=== PATIENT | female | born 1950 | race African-American/Black ===

== ENCOUNTER 2021-08-25 16:55 | Inpatient (IN) | payer MEDICARE ==
--- NOTE | 2021-08-26 10:45 | Consultation ---
History of Present Illness - Reason for Consult Consult date: 08/26/21 Medical of chronic medical conditions - History of Present Illness 70-year-old woman with reported history of hypertension and diabetes who was admitted to the geriatric psych for suicidal ideation. Medicine was consulted for management of chronic medical conditions. Patient interview was conducted via blue phone. Patient was not very communicative. She did endorse having hypertension and taking medication in the past. She did not know the name of the medications and had not taken them in months. She denies chest pain, shortness of breath, peripheral edema, polyuria and polydipsia. She also denied having diabetes. Currently she states she is "fine". She denied current suicidal ideation. Past History Past Medical History: hypertension Past Surgical History: No surgical history Social history: no significant social history Family history: no significant family history Medications and Allergies Allergies Allergy/AdvReac Type Severity Reaction Status Date / Time No Known Allergies Allergy Verified 08/26/21 03:16 Active Meds: Active Medications Melatonin (Melatonin 5 Mg Tab) 5 mg PO QHS PRN PRN Reason: Sleep Trazodone HCl (Trazodone 50 Mg Tab) 50 mg PO QHS [facility] Review of Systems All systems: negative Ears, nose, mouth and throat: headache Psychiatric: sadness/tearfullness Exam - Physical Exam Narrative exam: GENERAL: Thin elderly woman. Sitting in chair, no acute distress. HEENT: Normocephalic. Atraumatic. CHEST/LUNGS: CTAB on room air HEART/CARDIOVASCULAR: RRR. No murmur, rubs or gallops appreciated. ABDOMEN: +BS. NT/ND. SKIN: No rashes noted. NEURO: No focal motor deficit. Follows all commands and is ambulatory. MUSCULOSKELETAL: No joint effusion EXTREMITIES: No cyanosis, clubbing or edema. PSYCH: Cooperative. Results - Labs CBC & Chem 7: 08/26/21 13:40 08/26/21 13:40 Labs: Abnormal lab results 08/26/21 Range/Units 07:43 POC Glucose 113 H (70-105) mg/dL Assessment and Plan #Hypertension -Patient reports history of hypertension -No reported medications, none seen on chart review -If SBP greater than 160s persistently while inpatient, can consider starting antihypertensives #Reported history of type 2 diabetes -Hemoglobin A1c ordered -If A1c greater than 6.5, would recommend sliding scale -Would hold sliding scale for now #Schizophrenia #Suicidal ideation -Management per primary Thank you for this consult. We will continue to follow.
--- NOTE | 2021-08-26 12:04 | History and Physical Report ---
GP History & Physical - History of Present Illness Date of admission: 08/25/21 Date of Examination: 08/26/21 Reason for Admission: Danger to self, Failure of Outpatient Treatment, Severe anxiety/depression, Unable to care for self History of Present Illness: Rafaela Bell is a 70y/o [place] patient who was brought in for confusion and not taking medications. A medical physics teacher was utilized via the language line. The patient is confused. She did not know where she was, or why she was brought here. She says she lives with her family but it is "a sad situation." She says she is not happy. The patient endorses passive suicidal thoughts. She says she "wants to ." She denies having a suicidal attempt in the past. The patient verbalizes not being able to sleep and having headaches. When asked did she hear or see things other people don't hear. She says she does not see anything, but she heard someone says something about a fire. She denies illicit substance use. PAST PSYCHIATRIC HISTORY: Unable to assess PAST MEDICAL HISTORY: None reported or document Family Psychiatric History: None reported or documented SOCIAL HISTORY Marital Status: Living Arrangements: Lives with family Employment Status: retired Access to guns/weapons: Denies Education: History of Abuse:Yes Legal History: Denies REVIEW OF SYSTEMS Constitutional: Negative for weight loss ENT: Negative for stridor Respiratory: Negative for cough or hemoptysis All other systems reviewed and are negative MENTAL STATUS EXAMINATION General Appearance and Behavior: Age appropriate, good hygiene, wearing appropriate clothes. Cooperation: cooperative Psychomotor Behavior: Psychomotor normal Mood: Depressed, sad Affect and affective range: congruent with stated mood Thought Process: circumstantial Thought Content: None Speech: Normal volume, Regular rate and rhythm, Ch[place] speaking Suicidal Ideation: yes, passive Homicidal Ideation: Denies Hallucinations: auditory Delusions: None elicited Impulse Control: Imparied Insight and Judgment: Poor Memory:Poor Attention: Distractible Orientation: Confused Assessment and Plan (1) Schizophrenia Current Visit: Yes Status: Acute Treatment Plan Patient admitted for inpatient psychiatric evaluation, medication adjustment and close monitoring The patient's behavior, mood, sleep and appetite will be closely monitored. Patient enrolled in individual and group therapeutic sessions and encouraged to attend. Patient provided with a safe and structured environment. Patient's physical health needs will be addressed by the Hospitalist. Hospitalist Consulted Labs including CBC, CMP, Lipid profile and Hemoglobin A1C levels ordered for baseline reference Social Assessment will be completed and the Rim Fire Priming Tool Setter will work with stanislave nt and family to ensure a suitable and safe disposition Medication adjustment will be made as clinically indicated Start Zoloft 25mg po daily Start Abilify 5mg po daily Start Trazodone 50mg po qhs Start Melatonin 5mg po qhs prn insomnia Usual Wellness Restorationist/Preservation: - Start Trazodone 50 mg po QHS & 50 mg po QHS PRN between 10 PM & 2 AM for insomnia - Start Melatonin 5 mg po QHS to promote circadian rhythm The patient agreed on the treatment plan, understood the risk, benefit, alternative treatment, potential consequence of no treatment, and gave informed consent. Estimated days: 7 Post hospital care: primary care provider, psychiatric provider Case staffed with Dr. Briones Legal Status: Voluntary Reaction to Hospitalization: Accepting Medications and Allergies Allergies Allergy/AdvReac Type Severity Reaction Status Date / Time No Known Allergies Allergy Verified 08/26/21 03:16 Active Meds: Active Medications Melatonin (Melatonin 5 Mg Tab) 5 mg PO QHS PRN PRN Reason: Sleep Trazodone HCl (Trazodone 50 Mg Tab) 50 mg PO QHS [facility] Results - Results Labs/Vitals: Laboratory Last Values POC Glucose 106 mg/dL (70-105) H 08/26/21 11:59 Physician Certification - Certification Statement Physician Certification Statement: This is an acknowledgement statement that RAFAELA BELL is a 70 year old F who requires inpatient psychiatric admission for treatment which could reasonably be expected to improve the patient's condition for Estimated period of time patient will need to remain in the hospital: [ ] Plan for post-hospital care: [ ]
[2021-08-26] MEDS: SERTRALINE 25 MG TAB PO SCH (14:00)
[2021-08-26] MEDS: ARIPiprazole 5 MG TAB PO SCH (14:00)
[2021-08-26 14:03] LABS: Basophils % (Auto) 0.3 % (0.0-1.8); Eosinophils % (Auto) 0.1 % (0.0-4.3); Hematocrit 37.5 % (30.3-42.9); Hemoglobin 12.8 gm/dl (10.1-14.3); Lymphocytes # (Auto) 1.3 K/mm3 (1.2-5.4); Mean Corpuscular HGB Conc 34 % (30-34); Mean Corpuscular Volume 104 fl (79-97); Monocytes # (Auto) 0.3 K/mm3 (0.0-0.8); Monocytes % (Auto) 7.4 % (0.0-7.3); Platelet Count 165 K/mm3 (140-440); Red Blood Count 3.62 M/mm3 (3.65-5.03); Red Cell Distribution Width 13.4 % (13.2-15.2)
[2021-08-26 14:31] LABS: Alanine Aminotransferase 17 units/L (7-56); Albumin 3.3 g/dL (3.9-5); BUN/Creatinine Ratio 26; Blood Urea Nitrogen 13 mg/dL (7-17); Calcium 8.8 mg/dL (8.4-10.2); Chol/HDL Ratio 4.67 %; HDL Cholesterol 31 mg/dL (40-59); Hemolysis Index 8; LDL Cholesterol,Direct 97 mg/dL (50-130)
[2021-08-26] MEDS: traZODone 50 MG TAB PO SCH (21:20)
[2021-08-27] MEDS: SERTRALINE 25 MG TAB PO SCH (09:05)
[2021-08-27] MEDS: ARIPiprazole 5 MG TAB PO SCH (09:05)
--- NOTE | 2021-08-27 10:39 | Progress Note ---
Subjective Date of service: 08/27/21 Principal diagnosis: SI Subjective Comment: The patient was seen today. She is calm and cooperative. She is sitting with another patient. She has her head down initially, then raises it up. REVIEW OF SYSTEMS Constitutional: Negative for weight loss ENT: Negative for stridor Respiratory: Negative for cough or hemoptysis All other systems reviewed and are negative MENTAL STATUS EXAMINATION General Appearance and Behavior: Age appropriate, good hygiene, wearing appropriate clothes. Cooperation: cooperative Psychomotor Behavior: Psychomotor normal Mood: Depressed, sad Affect and affective range: congruent with stated mood Thought Process: circumstantial Thought Content: None Speech: Normal volume, Regular rate and rhythm, Palestinian speaking Suicidal Ideation: yes, passive Homicidal Ideation: Denies Hallucinations: auditory Delusions: None elicited Impulse Control: Imparied Insight and Judgment: Poor Memory:Poor Attention: Distractible Orientation: Confused Assessment and Plan (1) Schizophrenia Current Visit: Yes Status: Acute Treatment Plan Patient admitted for inpatient psychiatric evaluation, medication adjustment and close monitoring The patient's behavior, mood, sleep and appetite will be closely monitored. Patient enrolled in individual and group therapeutic sessions and encouraged to attend. Patient provided with a safe and structured environment. Patient's physical health needs will be addressed by the Hospitalist. Hospitalist Consulted Labs including CBC, CMP, Lipid profile and Hemoglobin A1C levels ordered for baseline reference Social Assessment will be completed and the Communications Superintendent will work with patient and family to ensure a suitable and safe disposition Medication adjustment will be made as clinically indicated ContineuZoloft 25mg po daily Continue Abilify 5mg po daily ContinueTrazodone 50mg po qhs Continue Melatonin 5mg po qhs prn insomnia Usual Wellness [facility]/Preservation: - Start Trazodone 50 mg po QHS & 50 mg po QHS PRN between 10 PM & 2 AM for insomnia - Start Melatonin 5 mg po QHS to promote circadian rhythm The patient agreed on the treatment plan, understood the risk, benefit, alternative treatment, potential consequence of no treatment, and gave informed consent. Estimated days: 7 Post hospital care: primary care provider, psychiatric provider Case staffed with Dr. Briones Medications and Allergies Allergies Allergy/AdvReac Type Severity Reaction Status Date / Time No Known Allergies Allergy Verified 08/26/21 03:16 Active Meds: Active Medications Aripiprazole (Aripiprazole 5 Mg Tab) 5 mg PO QDAY [facility] Last Admin: 08/27/21 09:05 Dose: 5 mg Documented by: Melatonin (Melatonin 5 Mg Tab) 5 mg PO QHS PRN PRN Reason: Sleep Sertraline HCl (Sertraline 25 Mg Tab) 25 mg PO QDAY [facility] Last Admin: 08/27/21 09:05 Dose: 25 mg Documented by: Trazodone HCl (Trazodone 50 Mg Tab) 50 mg PO QHS [facility] Last Admin: 08/26/21 21:20 Dose: 50 mg Documented by: Results - Results Labs/Vitals: Laboratory Last Values WBC 4.1 K/mm3 (4.5-11.0) L 08/26/21 13:40 RBC 3.62 M/mm3 (3.65-5.03) L 08/26/21 13:40 Hgb 12.8 gm/dl (10.1-14.3) 08/26/21 13:40 Hct 37.5 % (30.3-42.9) 08/26/21 13:40 MCV 104 fl (79-97) H 08/26/21 13:40 MCH 35 pg (28-32) H 08/26/21 13:40 MCHC 34 % (30-34) 08/26/21 13:40 RDW 13.4 % (13.2-15.2) 08/26/21 13:40 Plt Count 165 K/mm3 (140-440) 08/26/21 13:40 Lymph % (Auto) 31.0 % (13.4-35.0) 08/26/21 13:40 [place] % (Auto) 7.4 % (0.0-7.3) H 08/26/21 13:40 Eos % (Auto) 0.1 % (0.0-4.3) 08/26/21 13:40 Baso % (Auto) 0.3 % (0.0-1.8) 08/26/21 13:40 Lymph # (Auto) 1.3 K/mm3 (1.2-5.4) 08/26/21 13:40 [place] # (Auto) 0.3 K/mm3 (0.0-0.8) 08/26/21 13:40 Eos # (Auto) 0.0 K/mm3 (0.0-0.4) 08/26/21 13:40 Baso # (Auto) 0.0 K/mm3 (0.0-0.1) 08/26/21 13:40 Seg Neutrophils % 61.2 % (40.0-70.0) 08/26/21 13:40 Seg Neutrophils # 2.5 K/mm3 (1.8-7.7) 08/26/21 13:40 Sodium 140 mmol/L (137-145) 08/26/21 13:40 Potassium 4.3 mmol/L (3.6-5.0) 08/26/21 13:40 Chloride 102.8 mmol/L (98-107) 08/26/21 13:40 Carbon Dioxide 26 mmol/L (22-30) 08/26/21 13:40 Anion Gap 16 mmol/L 08/26/21 13:40 BUN 13 mg/dL (7-17) 08/26/21 13:40 Creatinine 0.5 mg/dL (0.6-1.2) L 08/26/21 13:40 Estimated GFR > 60 ml/min 08/26/21 13:40 BUN/Creatinine Ratio 26 % 08/26/21 13:40 Glucose 134 mg/dL (65-100) H 08/26/21 13:40 POC Glucose 117 mg/dL (70-105) H 08/27/21 06:05 Hemoglobin A1c 5.6 % (4-6) 08/26/21 13:40 Calcium 8.8 mg/dL (8.4-10.2) 08/26/21 13:40 Total Bilirubin 0.40 mg/dL (0.1-1.2) 08/26/21 13:40 AST 26 units/L (5-40) 08/26/21 13:40 ALT 17 units/L (7-56) 08/26/21 13:40 Alkaline Phosphatase 133 units/L (35-129) H 08/26/21 13:40 Total Protein 8.6 g/dL (6.3-8.2) H 08/26/21 13:40 Albumin 3.3 g/dL (3.9-5) L 08/26/21 13:40 Albumin/Globulin Ratio 0.6 % 08/26/21 13:40 Triglycerides 174 mg/dL (2-149) H 08/26/21 13:40 Cholesterol 145 mg/dL (50-199) 08/26/21 13:40 LDL Cholesterol Direct 97 mg/dL (50-130) 08/26/21 13:40 HDL Cholesterol 31 mg/dL (40-59) L 08/26/21 13:40 Cholesterol/HDL Ratio 4.67 % 08/26/21 13:40 TSH 3.330 mlU/mL (0.270-4.200) 08/26/21 13:40 Last Vital Signs Temp 97.9 F 08/27/21 07:27 Pulse 76 08/26/21 19:51 Resp 18 08/27/21 07:27 BP 128/48 08/27/21 07:27 Pulse Ox 94 08/26/21 19:51
[2021-08-27] MEDS: traZODone 50 MG TAB PO SCH (21:08)
--- NOTE | 2021-08-28 07:24 | Progress Note ---
Subjective Date of service: 08/28/21 Principal diagnosis: SI Subjective Comment: The patient was seen this morning, she non verbal today. Unable to assess. REVIEW OF SYSTEMS Constitutional: Negative for weight loss ENT: Negative for stridor Respiratory: Negative for cough or hemoptysis All other systems reviewed and are negative MENTAL STATUS EXAMINATION General Appearance and Behavior: Age appropriate, good hygiene, wearing appropriate clothes. Cooperation: uncooperative Psychomotor Behavior: Psychomotor normal Mood: Depressed, sad Affect and affective range: congruent with stated mood Thought Process: unable to assess Thought Content: None Speech: Non verbal Homicidal Ideation: unable to assess Hallucinations: unable to assess Delusions: None elicited Impulse Control: Imparied Insight and Judgment: Poor Memory:Poor Attention: Distractible Orientation: Confused Assessment and Plan (1) Schizophrenia Current Visit: Yes Status: Acute Treatment Plan Patient admitted for inpatient psychiatric evaluation, medication adjustment and close monitoring The patient's behavior, mood, sleep and appetite will be closely monitored. Patient enrolled in individual and group therapeutic sessions and encouraged to attend. Patient provided with a safe and structured environment. Patient's physical health needs will be addressed by the Hospitalist. Hospitalist Consulted Labs including CBC, CMP, Lipid profile and Hemoglobin A1C levels ordered for baseline reference Social Assessment will be completed and the Life Sciences Director will work with patient and family to ensure a suitable and safe disposition Medication adjustment will be made as clinically indicated Continue Zoloft 25mg po daily Continue Abilify 5mg po daily Continue Trazodone 50mg po qhs Continue Melatonin 5mg po qhs prn insomnia Usual Wellness Advent/Preservation: - Start Trazodone 50 mg po QHS & 50 mg po QHS PRN between 10 PM & 2 AM for insomnia - Start Melatonin 5 mg po QHS to promote circadian rhythm The patient agreed on the treatment plan, understood the risk, benefit, alternative treatment, potential consequence of no treatment, and gave informed consent. Estimated days: 7 Post hospital care: primary care provider, psychiatric provider Case staffed with Dr. Briones Medications and Allergies Allergies Allergy/AdvReac Type Severity Reaction Status Date / Time No Known Allergies Allergy Verified 08/26/21 03:16 Active Meds: Active Medications Aripiprazole (Aripiprazole 5 Mg Tab) 5 mg PO QDAY [facility] Last Admin: 08/27/21 09:05 Dose: 5 mg Documented by: Melatonin (Melatonin 5 Mg Tab) 5 mg PO QHS PRN PRN Reason: Sleep Sertraline HCl (Sertraline 25 Mg Tab) 25 mg PO QDAY [facility] Last Admin: 08/27/21 09:05 Dose: 25 mg Documented by: Trazodone HCl (Trazodone 50 Mg Tab) 50 mg PO QHS [facility] Last Admin: 08/26/21 21:20 Dose: 50 mg Documented by: Medications and Allergies Allergies Allergy/AdvReac Type Severity Reaction Status Date / Time No Known Allergies Allergy Verified 08/26/21 03:16 Active Meds: Active Medications Aripiprazole (Aripiprazole 5 Mg Tab) 5 mg PO QDAY [facility] Last Admin: 08/27/21 09:05 Dose: 5 mg Documented by: Melatonin (Melatonin 5 Mg Tab) 5 mg PO QHS PRN PRN Reason: Sleep Sertraline HCl (Sertraline 25 Mg Tab) 25 mg PO QDAY [facility] Last Admin: 08/27/21 09:05 Dose: 25 mg Documented by: Trazodone HCl (Trazodone 50 Mg Tab) 50 mg PO QHS [facility] Last Admin: 08/27/21 21:08 Dose: 50 mg Documented by: Results - Results Labs/Vitals: Laboratory Last Values WBC 4.1 K/mm3 (4.5-11.0) L 08/26/21 13:40 RBC 3.62 M/mm3 (3.65-5.03) L 08/26/21 13:40 Hgb 12.8 gm/dl (10.1-14.3) 08/26/21 13:40 Hct 37.5 % (30.3-42.9) 08/26/21 13:40 MCV 104 fl (79-97) H 08/26/21 13:40 MCH 35 pg (28-32) H 08/26/21 13:40 MCHC 34 % (30-34) 08/26/21 13:40 RDW 13.4 % (13.2-15.2) 08/26/21 13:40 Plt Count 165 K/mm3 (140-440) 08/26/21 13:40 Lymph % (Auto) 31.0 % (13.4-35.0) 08/26/21 13:40 [place] % (Auto) 7.4 % (0.0-7.3) H 08/26/21 13:40 Eos % (Auto) 0.1 % (0.0-4.3) 08/26/21 13:40 Baso % (Auto) 0.3 % (0.0-1.8) 08/26/21 13:40 Lymph # (Auto) 1.3 K/mm3 (1.2-5.4) 08/26/21 13:40 [place] # (Auto) 0.3 K/mm3 (0.0-0.8) 08/26/21 13:40 Eos # (Auto) 0.0 K/mm3 (0.0-0.4) 08/26/21 13:40 Baso # (Auto) 0.0 K/mm3 (0.0-0.1) 08/26/21 13:40 Seg Neutrophils % 61.2 % (40.0-70.0) 08/26/21 13:40 Seg Neutrophils # 2.5 K/mm3 (1.8-7.7) 08/26/21 13:40 Sodium 140 mmol/L (137-145) 08/26/21 13:40 Potassium 4.3 mmol/L (3.6-5.0) 08/26/21 13:40 Chloride 102.8 mmol/L (98-107) 08/26/21 13:40 Carbon Dioxide 26 mmol/L (22-30) 08/26/21 13:40 Anion Gap 16 mmol/L 08/26/21 13:40 BUN 13 mg/dL (7-17) 08/26/21 13:40 Creatinine 0.5 mg/dL (0.6-1.2) L 08/26/21 13:40 Estimated GFR > 60 ml/min 08/26/21 13:40 BUN/Creatinine Ratio 26 % 08/26/21 13:40 Glucose 134 mg/dL (65-100) H 08/26/21 13:40 POC Glucose 117 mg/dL (70-105) H 08/27/21 06:05 Hemoglobin A1c 5.6 % (4-6) 08/26/21 13:40 Calcium 8.8 mg/dL (8.4-10.2) 08/26/21 13:40 Total Bilirubin 0.40 mg/dL (0.1-1.2) 08/26/21 13:40 AST 26 units/L (5-40) 08/26/21 13:40 ALT 17 units/L (7-56) 08/26/21 13:40 Alkaline Phosphatase 133 units/L (35-129) H 08/26/21 13:40 Total Protein 8.6 g/dL (6.3-8.2) H 08/26/21 13:40 Albumin 3.3 g/dL (3.9-5) L 08/26/21 13:40 Albumin/Globulin Ratio 0.6 % 08/26/21 13:40 Triglycerides 174 mg/dL (2-149) H 08/26/21 13:40 Cholesterol 145 mg/dL (50-199) 08/26/21 13:40 LDL Cholesterol Direct 97 mg/dL (50-130) 08/26/21 13:40 HDL Cholesterol 31 mg/dL (40-59) L 08/26/21 13:40 Cholesterol/HDL Ratio 4.67 % 08/26/21 13:40 TSH 3.330 mlU/mL (0.270-4.200) 08/26/21 13:40 Last Vital Signs Temp 98.2 F 08/27/21 20:00 Pulse 70 08/27/21 20:00 Resp 18 08/27/21 20:00 BP 145/67 08/27/21 20:00 Pulse Ox 94 08/26/21 19:51
[2021-08-28] MEDS: ARIPiprazole 5 MG TAB PO SCH (10:08)
[2021-08-28] MEDS: SERTRALINE 25 MG TAB PO SCH (10:09)
[2021-08-28] MEDS: traZODone 50 MG TAB PO SCH (21:52)
[2021-08-28] MEDS: MELATONIN 5 MG TAB PO PRN (21:52)
--- NOTE | 2021-08-29 07:52 | Progress Note ---
Subjective Date of service: 08/29/21 Principal diagnosis: SI Subjective Comment: The patient seen this morning, she continues to be confused and pacing. A rfid systems engineer via the language line was used for this assessment. the patient states she feels normal but admits having auditory hallucinations. REVIEW OF SYSTEMS Constitutional: Negative for weight loss ENT: Negative for stridor Respiratory: Negative for cough or hemoptysis All other systems reviewed and are negative MENTAL STATUS EXAMINATION General Appearance and Behavior: Age appropriate, good hygiene, wearing appropriate clothes. Cooperation: uncooperative Psychomotor Behavior: Psychomotor normal Mood: confused Affect and affective range: congruent with stated mood Thought Process: unable to assess Thought Content: None Speech: Non verbal Homicidal Ideation: unable to assess Hallucinations: unable to assess Delusions: None elicited Impulse Control: Imparied Insight and Judgment: Poor Memory:Poor Attention: Distractible Orientation: Confused Assessment and Plan (1) Schizophrenia Current Visit: Yes Status: Acute Treatment Plan Patient admitted for inpatient psychiatric evaluation, medication adjustment and close monitoring The patient's behavior, mood, sleep and appetite will be closely monitored. Patient enrolled in individual and group therapeutic sessions and encouraged to attend. Patient provided with a safe and structured environment. Patient's physical health needs will be addressed by the Hospitalist. Hospitalist Consulted Labs including CBC, CMP, Lipid profile and Hemoglobin A1C levels ordered for baseline reference Social Assessment will be completed and the Acetone Button Paster will work with patient and family to ensure a suitable and safe disposition Medication adjustment will be made as clinically indicated Continue Zoloft 25mg po daily Continue Abilify 5mg po daily Continue Trazodone 50mg po qhs Continue Melatonin 5mg po qhs prn insomnia Usual Wellness [facility]/Preservation: - Start Trazodone 50 mg po QHS & 50 mg po QHS PRN between 10 PM & 2 AM for insomnia - Start Melatonin 5 mg po QHS to promote circadian rhythm The patient agreed on the treatment plan, understood the risk, benefit, alternative treatment, potential consequence of no treatment, and gave informed consent. Estimated days: 7 Post hospital care: primary care provider, psychiatric provider Case staffed with Dr. Briones Medications and Allergies Medications and Allergies Allergies Allergy/AdvReac Type Severity Reaction Status Date / Time No Known Allergies Allergy Verified 08/26/21 03:16 Active Meds: Active Medications Aripiprazole (Aripiprazole 5 Mg Tab) 5 mg PO QDAY [facility] Last Admin: 08/28/21 10:08 Dose: Not Given Documented by: Melatonin (Melatonin 5 Mg Tab) 5 mg PO QHS PRN PRN Reason: Sleep Last Admin: 08/28/21 21:52 Dose: 5 mg Documented by: Sertraline HCl (Sertraline 25 Mg Tab) 25 mg PO QDAY [facility] Last Admin: 08/28/21 10:09 Dose: Not Given Documented by: Trazodone HCl (Trazodone 50 Mg Tab) 50 mg PO QHS [facility] Last Admin: 08/28/21 21:52 Dose: 50 mg Documented by: Results - Results Labs/Vitals: Laboratory Last Values WBC 4.1 K/mm3 (4.5-11.0) L 08/26/21 13:40 RBC 3.62 M/mm3 (3.65-5.03) L 08/26/21 13:40 Hgb 12.8 gm/dl (10.1-14.3) 08/26/21 13:40 Hct 37.5 % (30.3-42.9) 08/26/21 13:40 MCV 104 fl (79-97) H 08/26/21 13:40 MCH 35 pg (28-32) H 08/26/21 13:40 MCHC 34 % (30-34) 08/26/21 13:40 RDW 13.4 % (13.2-15.2) 08/26/21 13:40 Plt Count 165 K/mm3 (140-440) 08/26/21 13:40 Lymph % (Auto) 31.0 % (13.4-35.0) 08/26/21 13:40 [place] % (Auto) 7.4 % (0.0-7.3) H 08/26/21 13:40 Eos % (Auto) 0.1 % (0.0-4.3) 08/26/21 13:40 Baso % (Auto) 0.3 % (0.0-1.8) 08/26/21 13:40 Lymph # (Auto) 1.3 K/mm3 (1.2-5.4) 08/26/21 13:40 [place] # (Auto) 0.3 K/mm3 (0.0-0.8) 08/26/21 13:40 Eos # (Auto) 0.0 K/mm3 (0.0-0.4) 08/26/21 13:40 Baso # (Auto) 0.0 K/mm3 (0.0-0.1) 08/26/21 13:40 Seg Neutrophils % 61.2 % (40.0-70.0) 08/26/21 13:40 Seg Neutrophils # 2.5 K/mm3 (1.8-7.7) 08/26/21 13:40 Sodium 140 mmol/L (137-145) 08/26/21 13:40 Potassium 4.3 mmol/L (3.6-5.0) 08/26/21 13:40 Chloride 102.8 mmol/L (98-107) 08/26/21 13:40 Carbon Dioxide 26 mmol/L (22-30) 08/26/21 13:40 Anion Gap 16 mmol/L 08/26/21 13:40 BUN 13 mg/dL (7-17) 08/26/21 13:40 Creatinine 0.5 mg/dL (0.6-1.2) L 08/26/21 13:40 Estimated GFR > 60 ml/min 08/26/21 13:40 BUN/Creatinine Ratio 26 % 08/26/21 13:40 Glucose 134 mg/dL (65-100) H 08/26/21 13:40 POC Glucose 114 mg/dL (70-105) H 08/29/21 06:08 Hemoglobin A1c 5.6 % (4-6) 08/26/21 13:40 Calcium 8.8 mg/dL (8.4-10.2) 08/26/21 13:40 Total Bilirubin 0.40 mg/dL (0.1-1.2) 08/26/21 13:40 AST 26 units/L (5-40) 08/26/21 13:40 ALT 17 units/L (7-56) 08/26/21 13:40 Alkaline Phosphatase 133 units/L (35-129) H 08/26/21 13:40 Total Protein 8.6 g/dL (6.3-8.2) H 08/26/21 13:40 Albumin 3.3 g/dL (3.9-5) L 08/26/21 13:40 Albumin/Globulin Ratio 0.6 % 08/26/21 13:40 Triglycerides 174 mg/dL (2-149) H 08/26/21 13:40 Cholesterol 145 mg/dL (50-199) 08/26/21 13:40 LDL Cholesterol Direct 97 mg/dL (50-130) 08/26/21 13:40 HDL Cholesterol 31 mg/dL (40-59) L 08/26/21 13:40 Cholesterol/HDL Ratio 4.67 % 08/26/21 13:40 TSH 3.330 mlU/mL (0.270-4.200) 08/26/21 13:40 Last Vital Signs Temp 97.6 F 08/28/21 21:07 Pulse 94 H 08/28/21 21:07 Resp 18 08/28/21 21:07 BP 158/71 08/28/21 21:07 Pulse Ox 96 08/28/21 21:07
--- NOTE | 2021-08-29 08:09 | Progress Note ---
Assessment and Plan Assessment and plan: #Hypertension -elevated blood pressures over the last few days -will start amlodipine 5mg qday -will continue to monitor #Reported history of type 2 diabetes -Hemoglobin A1c 5.6% -Would hold sliding scale for now -can discontinue accuchecks - glucose has been in low 100s. #Schizophrenia #Suicidal ideation -Management per primary Thank you for this consult. We will continue to follow. Disposition Plan: Per primary Total Time Spent with Patient (Minutes): 20 minutes History Interval history: No acute events overnight. Patient speaks Ethiopian, phone translation was used. Patient denies pain. Will not respond to any other questions. Hospitalist Physical - Physical exam Narrative exam: GENERAL: Thin elderly woman. Standing in the young, no acute distress. HEENT: Normocephalic. Atraumatic. CHEST/LUNGS: CTAB on room air HEART/CARDIOVASCULAR: RRR. No murmur, rubs or gallops appreciated. ABDOMEN: +BS. NT/ND. NEURO: Unable to assess EXTREMITIES: No cyanosis, clubbing or edema. - Constitutional Vitals: Temp Pulse Resp BP Pulse Ox 97.6 F 94 H 18 158/71 96 08/28/21 21:07 08/28/21 21:07 08/28/21 21:07 08/28/21 21:07 08/28/21 21:07 Results - Labs CBC & Chem 7: 08/26/21 13:40 08/26/21 13:40 Labs: Laboratory Last Values WBC 4.1 K/mm3 (4.5-11.0) L 08/26/21 13:40 RBC 3.62 M/mm3 (3.65-5.03) L 08/26/21 13:40 Hgb 12.8 gm/dl (10.1-14.3) 08/26/21 13:40 Hct 37.5 % (30.3-42.9) 08/26/21 13:40 MCV 104 fl (79-97) H 08/26/21 13:40 MCH 35 pg (28-32) H 08/26/21 13:40 MCHC 34 % (30-34) 08/26/21 13:40 RDW 13.4 % (13.2-15.2) 08/26/21 13:40 Plt Count 165 K/mm3 (140-440) 08/26/21 13:40 Lymph % (Auto) 31.0 % (13.4-35.0) 08/26/21 13:40 [place] % (Auto) 7.4 % (0.0-7.3) H 08/26/21 13:40 Eos % (Auto) 0.1 % (0.0-4.3) 08/26/21 13:40 Baso % (Auto) 0.3 % (0.0-1.8) 08/26/21 13:40 Lymph # (Auto) 1.3 K/mm3 (1.2-5.4) 08/26/21 13:40 [place] # (Auto) 0.3 K/mm3 (0.0-0.8) 08/26/21 13:40 Eos # (Auto) 0.0 K/mm3 (0.0-0.4) 08/26/21 13:40 Baso # (Auto) 0.0 K/mm3 (0.0-0.1) 08/26/21 13:40 Seg Neutrophils % 61.2 % (40.0-70.0) 08/26/21 13:40 Seg Neutrophils # 2.5 K/mm3 (1.8-7.7) 08/26/21 13:40 Sodium 140 mmol/L (137-145) 08/26/21 13:40 Potassium 4.3 mmol/L (3.6-5.0) 08/26/21 13:40 Chloride 102.8 mmol/L (98-107) 08/26/21 13:40 Carbon Dioxide 26 mmol/L (22-30) 08/26/21 13:40 Anion Gap 16 mmol/L 08/26/21 13:40 BUN 13 mg/dL (7-17) 08/26/21 13:40 Creatinine 0.5 mg/dL (0.6-1.2) L 08/26/21 13:40 Estimated GFR > 60 ml/min 08/26/21 13:40 BUN/Creatinine Ratio 26 % 08/26/21 13:40 Glucose 134 mg/dL (65-100) H 08/26/21 13:40 POC Glucose 114 mg/dL (70-105) H 08/29/21 06:08 Hemoglobin A1c 5.6 % (4-6) 08/26/21 13:40 Calcium 8.8 mg/dL (8.4-10.2) 08/26/21 13:40 Total Bilirubin 0.40 mg/dL (0.1-1.2) 08/26/21 13:40 AST 26 units/L (5-40) 08/26/21 13:40 ALT 17 units/L (7-56) 08/26/21 13:40 Alkaline Phosphatase 133 units/L (35-129) H 08/26/21 13:40 Total Protein 8.6 g/dL (6.3-8.2) H 08/26/21 13:40 Albumin 3.3 g/dL (3.9-5) L 08/26/21 13:40 Albumin/Globulin Ratio 0.6 % 08/26/21 13:40 Triglycerides 174 mg/dL (2-149) H 08/26/21 13:40 Cholesterol 145 mg/dL (50-199) 08/26/21 13:40 LDL Cholesterol Direct 97 mg/dL (50-130) 08/26/21 13:40 HDL Cholesterol 31 mg/dL (40-59) L 08/26/21 13:40 Cholesterol/HDL Ratio 4.67 % 08/26/21 13:40 TSH 3.330 mlU/mL (0.270-4.200) 08/26/21 13:40 Zamora/IV: Voiding Method Toilet Active Medications - Current Medications Current Medications: Generic Name Dose Route Start Last Admin Trade Name Freq PRN Reason Stop Dose Admin Aripiprazole 5 mg 08/26/21 15:00 08/28/21 10:08 Aripiprazole 5 Mg Tab PO Not Given QDAY AZEB Melatonin 5 mg 08/26/21 03:19 08/28/21 21:52 Melatonin 5 Mg Tab PO 5 mg QHS PRN Administration Sleep Sertraline HCl 25 mg 08/26/21 15:00 08/28/21 10:09 Sertraline 25 Mg Tab PO Not Given QDAY AZEB Trazodone HCl 50 mg 08/26/21 22:00 08/28/21 21:52 Trazodone 50 Mg Tab PO 50 mg QHS AZEB Administration
[2021-08-29] MEDS: ARIPiprazole 5 MG TAB PO SCH (10:26)
[2021-08-29] MEDS: SERTRALINE 25 MG TAB PO SCH (10:26)
[2021-08-29] MEDS: amLODIPine 5 MG TAB PO SCH (10:27)
[2021-08-29] MEDS: traZODone 50 MG TAB PO SCH (21:07)
--- NOTE | 2021-08-30 08:57 | Progress Note ---
Subjective Date of service: 08/30/21 Principal diagnosis: SI Subjective Comment: 08/29/21:The patient seen this morning, she continues to be confused and pacing. A electrician's assistant via the language line was used for this assessment. the patient states she feels normal but admits having auditory hallucinations. 08/30/21: The patient was seen sleeping. Per nurse: "Pt slept for approximately 3/4 hours. Came out wandering on the hallway when another pt was disrupting the unit. She was easy to redirect." REVIEW OF SYSTEMS Constitutional: Negative for weight loss ENT: Negative for stridor Respiratory: Negative for cough or hemoptysis All other systems reviewed and are negative MENTAL STATUS EXAMINATION General Appearance and Behavior: Age appropriate, good hygiene, wearing appropriate clothes. Cooperation: uncooperative Psychomotor Behavior: Psychomotor normal Mood: unable to assess Affect and affective range: congruent with stated mood Thought Process: unable to assess Thought Content: None Speech: Non verbal Homicidal Ideation: unable to assess Hallucinations: unable to assess Delusions: None elicited Impulse Control: Imparied Insight and Judgment: Poor Memory:Poor Attention: Distractible Orientation: Confused Assessment and Plan (1) Schizophrenia Current Visit: Yes Status: Acute Treatment Plan Patient admitted for inpatient psychiatric evaluation, medication adjustment and close monitoring The patient's behavior, mood, sleep and appetite will be closely monitored. Patient enrolled in individual and group therapeutic sessions and encouraged to attend. Patient provided with a safe and structured environment. Patient's physical health needs will be addressed by the Hospitalist. Hospitalist Consulted Labs including CBC, CMP, Lipid profile and Hemoglobin A1C levels ordered for baseline reference Social Assessment will be completed and the Children'S Literature Professor will work with patient and family to ensure a suitable and safe disposition Medication adjustment will be made as clinically indicated Continue Zoloft 25mg po daily Continue Abilify 5mg po daily Continue Trazodone 50mg po qhs Continue Melatonin 5mg po qhs prn insomnia Usual Wellness Zoroastrianism/Preservation: - Start Trazodone 50 mg po QHS & 50 mg po QHS PRN between 10 PM & 2 AM for insomnia - Start Melatonin 5 mg po QHS to promote circadian rhythm The patient agreed on the treatment plan, understood the risk, benefit, alternative treatment, potential consequence of no treatment, and gave informed consent. Estimated days: 7 Post hospital care: primary care provider, psychiatric provider Case staffed with Dr. Briones Medications and Allergies Medications and Allergies Allergies Medications and Allergies Allergies Allergy/AdvReac Type Severity Reaction Status Date / Time No Known Allergies Allergy Verified 08/26/21 03:16 Active Meds: Active Medications Amlodipine Besylate (Amlodipine 5 Mg Tab) 5 mg PO QDAY [facility] Last Admin: 08/29/21 10:27 Dose: 5 mg Documented by: Aripiprazole (Aripiprazole 5 Mg Tab) 5 mg PO QDAY [facility] Last Admin: 08/29/21 10:26 Dose: 5 mg Documented by: Melatonin (Melatonin 5 Mg Tab) 5 mg PO QHS PRN PRN Reason: Sleep Last Admin: 08/28/21 21:52 Dose: 5 mg Documented by: Sertraline HCl (Sertraline 25 Mg Tab) 25 mg PO QDAY [facility] Last Admin: 08/29/21 10:26 Dose: 25 mg Documented by: Trazodone HCl (Trazodone 50 Mg Tab) 50 mg PO QHS [facility] Last Admin: 08/29/21 21:07 Dose: 50 mg Documented by: Results - Results Labs/Vitals: Laboratory Last Values WBC 4.1 K/mm3 (4.5-11.0) L 08/26/21 13:40 RBC 3.62 M/mm3 (3.65-5.03) L 08/26/21 13:40 Hgb 12.8 gm/dl (10.1-14.3) 08/26/21 13:40 Hct 37.5 % (30.3-42.9) 08/26/21 13:40 MCV 104 fl (79-97) H 08/26/21 13:40 MCH 35 pg (28-32) H 08/26/21 13:40 MCHC 34 % (30-34) 08/26/21 13:40 RDW 13.4 % (13.2-15.2) 08/26/21 13:40 Plt Count 165 K/mm3 (140-440) 08/26/21 13:40 Lymph % (Auto) 31.0 % (13.4-35.0) 08/26/21 13:40 [place] % (Auto) 7.4 % (0.0-7.3) H 08/26/21 13:40 Eos % (Auto) 0.1 % (0.0-4.3) 08/26/21 13:40 Baso % (Auto) 0.3 % (0.0-1.8) 08/26/21 13:40 Lymph # (Auto) 1.3 K/mm3 (1.2-5.4) 08/26/21 13:40 [place] # (Auto) 0.3 K/mm3 (0.0-0.8) 08/26/21 13:40 Eos # (Auto) 0.0 K/mm3 (0.0-0.4) 08/26/21 13:40 Baso # (Auto) 0.0 K/mm3 (0.0-0.1) 08/26/21 13:40 Seg Neutrophils % 61.2 % (40.0-70.0) 08/26/21 13:40 Seg Neutrophils # 2.5 K/mm3 (1.8-7.7) 08/26/21 13:40 Sodium 140 mmol/L (137-145) 08/26/21 13:40 Potassium 4.3 mmol/L (3.6-5.0) 08/26/21 13:40 Chloride 102.8 mmol/L (98-107) 08/26/21 13:40 Carbon Dioxide 26 mmol/L (22-30) 08/26/21 13:40 Anion Gap 16 mmol/L 08/26/21 13:40 BUN 13 mg/dL (7-17) 08/26/21 13:40 Creatinine 0.5 mg/dL (0.6-1.2) L 08/26/21 13:40 Estimated GFR > 60 ml/min 08/26/21 13:40 BUN/Creatinine Ratio 26 % 08/26/21 13:40 Glucose 134 mg/dL (65-100) H 08/26/21 13:40 POC Glucose 125 mg/dL (70-105) H 08/29/21 11:38 Hemoglobin A1c 5.6 % (4-6) 08/26/21 13:40 Calcium 8.8 mg/dL (8.4-10.2) 08/26/21 13:40 Total Bilirubin 0.40 mg/dL (0.1-1.2) 08/26/21 13:40 AST 26 units/L (5-40) 08/26/21 13:40 ALT 17 units/L (7-56) 08/26/21 13:40 Alkaline Phosphatase 133 units/L (35-129) H 08/26/21 13:40 Total Protein 8.6 g/dL (6.3-8.2) H 08/26/21 13:40 Albumin 3.3 g/dL (3.9-5) L 08/26/21 13:40 Albumin/Globulin Ratio 0.6 % 08/26/21 13:40 Triglycerides 174 mg/dL (2-149) H 08/26/21 13:40 Cholesterol 145 mg/dL (50-199) 08/26/21 13:40 LDL Cholesterol Direct 97 mg/dL (50-130) 08/26/21 13:40 HDL Cholesterol 31 mg/dL (40-59) L 08/26/21 13:40 Cholesterol/HDL Ratio 4.67 % 08/26/21 13:40 TSH 3.330 mlU/mL (0.270-4.200) 08/26/21 13:40 Last Vital Signs Temp 97.4 F L 08/29/21 19:58 Pulse 65 08/29/21 19:58 Resp 16 08/29/21 19:58 BP 112/46 08/29/21 19:58 Pulse Ox 96 08/29/21 19:58
[2021-08-30] MEDS: amLODIPine 5 MG TAB PO SCH (09:46)
[2021-08-30] MEDS: SERTRALINE 25 MG TAB PO SCH (09:46)
[2021-08-30] MEDS: ARIPiprazole 5 MG TAB PO SCH (09:46)
[2021-08-30] MEDS: traZODone 50 MG TAB PO SCH (21:36)
--- NOTE | 2021-08-31 07:16 | Progress Note ---
Subjective Date of service: 08/31/21 Principal diagnosis: SI Subjective Comment: 08/29/21:The patient seen this morning, she continues to be confused and pacing. A riverboat master via the language line was used for this assessment. the patient states she feels normal but admits having auditory hallucinations. 08/30/21: The patient was seen sleeping. Per nurse: "Pt slept for approximately 3/4 hours. Came out wandering on the hallway when another pt was disrupting the unit. She was easy to redirect." 08/31/21:The patient was seen this morning, she is calm and resting in bed. Per nurse "Last evening the patient spent in the activity room with peers. She has minimal interactions but has a language barrier. She presents as calmer and there was no evidence of AVH. Her appetite is fair and she is medication compliant. Overnight the patient rested quietly. She slept 8 hours." REVIEW OF SYSTEMS Constitutional: Negative for weight loss ENT: Negative for stridor Respiratory: Negative for cough or hemoptysis All other systems reviewed and are negative MENTAL STATUS EXAMINATION General Appearance and Behavior: Age appropriate, good hygiene, wearing appropriate clothes. Cooperation: cooperative Psychomotor Behavior: Psychomotor normal Mood: unable to assess Affect and affective range: congruent with stated mood Thought Process: unable to assess Thought Content: None Speech: Non verbal Homicidal Ideation: unable to assess Hallucinations: unable to assess Delusions: None elicited Impulse Control: Imparied Insight and Judgment: Poor Memory:Poor Attention: Distractible Orientation: Confused Assessment and Plan (1) Schizophrenia Current Visit: Yes Status: Acute Treatment Plan Patient admitted for inpatient psychiatric evaluation, medication adjustment and close monitoring The patient's behavior, mood, sleep and appetite will be closely monitored. Patient enrolled in individual and group therapeutic sessions and encouraged to attend. Patient provided with a safe and structured environment. Patient's physical health needs will be addressed by the Hospitalist. Hospitalist Consulted Labs including CBC, CMP, Lipid profile and Hemoglobin A1C levels ordered for baseline reference Social Assessment will be completed and the Portfolio Director will work with patient and family to ensure a suitable and safe disposition Medication adjustment will be made as clinically indicated Continue Zoloft 25mg po daily Continue Abilify 5mg po daily Continue Trazodone 50mg po qhs Continue Melatonin 5mg po qhs prn insomnia Usual Wellness Zoroastrian/Preservation: - Start Trazodone 50 mg po QHS & 50 mg po QHS PRN between 10 PM & 2 AM for insomnia - Start Melatonin 5 mg po QHS to promote circadian rhythm The patient agreed on the treatment plan, understood the risk, benefit, alternative treatment, potential consequence of no treatment, and gave informed consent. Estimated days: 7 Post hospital care: primary care provider, psychiatric provider Case staffed with Dr. Briones Medications and Allergies Medications and Allergies Allergies Allergy/AdvReac Type Severity Reaction Status Date / Time No Known Allergies Allergy Verified 08/26/21 03:16 Active Meds: Active Medications Amlodipine Besylate (Amlodipine 5 Mg Tab) 5 mg PO QDAY [facility] Last Admin: 08/30/21 09:46 Dose: 5 mg Documented by: Aripiprazole (Aripiprazole 5 Mg Tab) 5 mg PO QDAY [facility] Last Admin: 08/30/21 09:46 Dose: 5 mg Documented by: Melatonin (Melatonin 5 Mg Tab) 5 mg PO QHS PRN PRN Reason: Sleep Last Admin: 08/28/21 21:52 Dose: 5 mg Documented by: Sertraline HCl (Sertraline 25 Mg Tab) 25 mg PO QDAY [facility] Last Admin: 08/30/21 09:46 Dose: 25 mg Documented by: Trazodone HCl (Trazodone 50 Mg Tab) 50 mg PO QHS [facility] Last Admin: 08/30/21 21:36 Dose: 50 mg Documented by: Results - Results Labs/Vitals: Laboratory Last Values WBC 4.1 K/mm3 (4.5-11.0) L 08/26/21 13:40 RBC 3.62 M/mm3 (3.65-5.03) L 08/26/21 13:40 Hgb 12.8 gm/dl (10.1-14.3) 08/26/21 13:40 Hct 37.5 % (30.3-42.9) 08/26/21 13:40 MCV 104 fl (79-97) H 08/26/21 13:40 MCH 35 pg (28-32) H 08/26/21 13:40 MCHC 34 % (30-34) 08/26/21 13:40 RDW 13.4 % (13.2-15.2) 08/26/21 13:40 Plt Count 165 K/mm3 (140-440) 08/26/21 13:40 Lymph % (Auto) 31.0 % (13.4-35.0) 08/26/21 13:40 [place] % (Auto) 7.4 % (0.0-7.3) H 08/26/21 13:40 Eos % (Auto) 0.1 % (0.0-4.3) 08/26/21 13:40 Baso % (Auto) 0.3 % (0.0-1.8) 08/26/21 13:40 Lymph # (Auto) 1.3 K/mm3 (1.2-5.4) 08/26/21 13:40 [place] # (Auto) 0.3 K/mm3 (0.0-0.8) 08/26/21 13:40 Eos # (Auto) 0.0 K/mm3 (0.0-0.4) 08/26/21 13:40 Baso # (Auto) 0.0 K/mm3 (0.0-0.1) 08/26/21 13:40 Seg Neutrophils % 61.2 % (40.0-70.0) 08/26/21 13:40 Seg Neutrophils # 2.5 K/mm3 (1.8-7.7) 08/26/21 13:40 Sodium 140 mmol/L (137-145) 08/26/21 13:40 Potassium 4.3 mmol/L (3.6-5.0) 08/26/21 13:40 Chloride 102.8 mmol/L (98-107) 08/26/21 13:40 Carbon Dioxide 26 mmol/L (22-30) 08/26/21 13:40 Anion Gap 16 mmol/L 08/26/21 13:40 BUN 13 mg/dL (7-17) 08/26/21 13:40 Creatinine 0.5 mg/dL (0.6-1.2) L 08/26/21 13:40 Estimated GFR > 60 ml/min 08/26/21 13:40 BUN/Creatinine Ratio 26 % 08/26/21 13:40 Glucose 134 mg/dL (65-100) H 08/26/21 13:40 POC Glucose 110 mg/dL (70-105) H 08/30/21 11:35 Hemoglobin A1c 5.6 % (4-6) 08/26/21 13:40 Calcium 8.8 mg/dL (8.4-10.2) 08/26/21 13:40 Total Bilirubin 0.40 mg/dL (0.1-1.2) 08/26/21 13:40 AST 26 units/L (5-40) 08/26/21 13:40 ALT 17 units/L (7-56) 08/26/21 13:40 Alkaline Phosphatase 133 units/L (35-129) H 08/26/21 13:40 Total Protein 8.6 g/dL (6.3-8.2) H 08/26/21 13:40 Albumin 3.3 g/dL (3.9-5) L 08/26/21 13:40 Albumin/Globulin Ratio 0.6 % 08/26/21 13:40 Triglycerides 174 mg/dL (2-149) H 08/26/21 13:40 Cholesterol 145 mg/dL (50-199) 08/26/21 13:40 LDL Cholesterol Direct 97 mg/dL (50-130) 08/26/21 13:40 HDL Cholesterol 31 mg/dL (40-59) L 08/26/21 13:40 Cholesterol/HDL Ratio 4.67 % 08/26/21 13:40 TSH 3.330 mlU/mL (0.270-4.200) 08/26/21 13:40 Last Vital Signs Temp 98.8 F 08/30/21 19:18 Pulse 68 08/30/21 19:18 Resp 18 08/30/21 19:18 BP 109/55 08/30/21 19:18 Pulse Ox 95 08/30/21 19:18
--- NOTE | 2021-08-31 08:06 | Progress Note ---
Assessment and Plan Assessment and plan: #Hypertension -BP at goal -continue amlodipine 5mg qday -will continue to monitor #Reported history of type 2 diabetes -Hemoglobin A1c 5.6% -accuchecks have been in the low 100s -no intervention needed #Schizophrenia #Suicidal ideation -Management per primary Thank you for this consult. We will continue to follow. Disposition Plan: Per primary Total Time Spent with Patient (Minutes): 20 minutes History Interval history: No acute events overnight. Patient speaks Czech, phone translation was used. Patient unwilling to speak today. Hospitalist Physical - Physical exam Narrative exam: GENERAL: Thin elderly woman. In no acute distress. CHEST/LUNGS: CTAB on room air HEART/CARDIOVASCULAR: RRR. No murmur, rubs or gallops appreciated. ABDOMEN: +BS. NT/ND. NEURO: Unable to assess EXTREMITIES: No cyanosis, clubbing or edema. - Constitutional Vitals: Temp Pulse Resp BP Pulse Ox 98.8 F 68 18 109/55 95 08/30/21 19:18 08/30/21 19:18 08/30/21 19:18 08/30/21 19:18 08/30/21 19:18 Results - Labs CBC & Chem 7: 08/26/21 13:40 08/26/21 13:40 Labs: Laboratory Last Values WBC 4.1 K/mm3 (4.5-11.0) L 08/26/21 13:40 RBC 3.62 M/mm3 (3.65-5.03) L 08/26/21 13:40 Hgb 12.8 gm/dl (10.1-14.3) 08/26/21 13:40 Hct 37.5 % (30.3-42.9) 08/26/21 13:40 MCV 104 fl (79-97) H 08/26/21 13:40 MCH 35 pg (28-32) H 08/26/21 13:40 MCHC 34 % (30-34) 08/26/21 13:40 RDW 13.4 % (13.2-15.2) 08/26/21 13:40 Plt Count 165 K/mm3 (140-440) 08/26/21 13:40 Lymph % (Auto) 31.0 % (13.4-35.0) 08/26/21 13:40 [place] % (Auto) 7.4 % (0.0-7.3) H 08/26/21 13:40 Eos % (Auto) 0.1 % (0.0-4.3) 08/26/21 13:40 Baso % (Auto) 0.3 % (0.0-1.8) 08/26/21 13:40 Lymph # (Auto) 1.3 K/mm3 (1.2-5.4) 08/26/21 13:40 [place] # (Auto) 0.3 K/mm3 (0.0-0.8) 08/26/21 13:40 Eos # (Auto) 0.0 K/mm3 (0.0-0.4) 08/26/21 13:40 Baso # (Auto) 0.0 K/mm3 (0.0-0.1) 08/26/21 13:40 Seg Neutrophils % 61.2 % (40.0-70.0) 08/26/21 13:40 Seg Neutrophils # 2.5 K/mm3 (1.8-7.7) 08/26/21 13:40 Sodium 140 mmol/L (137-145) 08/26/21 13:40 Potassium 4.3 mmol/L (3.6-5.0) 08/26/21 13:40 Chloride 102.8 mmol/L (98-107) 08/26/21 13:40 Carbon Dioxide 26 mmol/L (22-30) 08/26/21 13:40 Anion Gap 16 mmol/L 08/26/21 13:40 BUN 13 mg/dL (7-17) 08/26/21 13:40 Creatinine 0.5 mg/dL (0.6-1.2) L 08/26/21 13:40 Estimated GFR > 60 ml/min 08/26/21 13:40 BUN/Creatinine Ratio 26 % 08/26/21 13:40 Glucose 134 mg/dL (65-100) H 08/26/21 13:40 POC Glucose 110 mg/dL (70-105) H 08/30/21 11:35 Hemoglobin A1c 5.6 % (4-6) 08/26/21 13:40 Calcium 8.8 mg/dL (8.4-10.2) 08/26/21 13:40 Total Bilirubin 0.40 mg/dL (0.1-1.2) 08/26/21 13:40 AST 26 units/L (5-40) 08/26/21 13:40 ALT 17 units/L (7-56) 08/26/21 13:40 Alkaline Phosphatase 133 units/L (35-129) H 08/26/21 13:40 Total Protein 8.6 g/dL (6.3-8.2) H 08/26/21 13:40 Albumin 3.3 g/dL (3.9-5) L 08/26/21 13:40 Albumin/Globulin Ratio 0.6 % 08/26/21 13:40 Triglycerides 174 mg/dL (2-149) H 08/26/21 13:40 Cholesterol 145 mg/dL (50-199) 08/26/21 13:40 LDL Cholesterol Direct 97 mg/dL (50-130) 08/26/21 13:40 HDL Cholesterol 31 mg/dL (40-59) L 08/26/21 13:40 Cholesterol/HDL Ratio 4.67 % 08/26/21 13:40 TSH 3.330 mlU/mL (0.270-4.200) 08/26/21 13:40 Zamora/IV: Voiding Method Toilet Active Medications - Current Medications Current Medications: Generic Name Dose Route Start Last Admin Trade Name Freq PRN Reason Stop Dose Admin Amlodipine Besylate 5 mg 08/29/21 10:00 08/30/21 09:46 Amlodipine 5 Mg Tab PO 5 mg QDAY AZEB Administration Aripiprazole 5 mg 08/26/21 15:00 08/30/21 09:46 Aripiprazole 5 Mg Tab PO 5 mg QDAY AZEB Administration Melatonin 5 mg 08/26/21 03:19 08/28/21 21:52 Melatonin 5 Mg Tab PO 5 mg QHS PRN Administration Sleep Sertraline HCl 25 mg 08/26/21 15:00 08/30/21 09:46 Sertraline 25 Mg Tab PO 25 mg QDAY AZEB Administration Trazodone HCl 50 mg 08/26/21 22:00 08/30/21 21:36 Trazodone 50 Mg Tab PO 50 mg QHS AZEB Administration
[2021-08-31] MEDS: amLODIPine 5 MG TAB PO SCH (11:59)
[2021-08-31] MEDS: ARIPiprazole 5 MG TAB PO SCH (11:59)
[2021-08-31] MEDS: SERTRALINE 25 MG TAB PO SCH (12:01)
[2021-08-31] MEDS: traZODone 50 MG TAB PO SCH (21:08)
[2021-08-31] MEDS: MELATONIN 5 MG TAB PO PRN (21:08)
[2021-09-01] MEDS: amLODIPine 5 MG TAB PO SCH (12:36)
[2021-09-01] MEDS: ARIPiprazole 5 MG TAB PO SCH (12:36)
[2021-09-01] MEDS: SERTRALINE 25 MG TAB PO SCH (12:37)
--- NOTE | 2021-09-01 14:39 | Progress Note ---
Subjective Date of service: 09/01/21 Principal diagnosis: SI Subjective Comment: 08/29/21:The patient seen this morning, she continues to be confused and pacing. A web site admin via the language line was used for this assessment. the patient states she feels normal but admits having auditory hallucinations. 08/30/21: The patient was seen sleeping. Per nurse: "Pt slept for approximately 3/4 hours. Came out wandering on the hallway when another pt was disrupting the unit. She was easy to redirect." 08/31/21:The patient was seen this morning, she is calm and resting in bed. Per nurse "Last evening the patient spent in the activity room with peers. She has minimal interactions but has a language barrier. She presents as calmer and there was no evidence of AVH. Her appetite is fair and she is medication compliant. Overnight the patient rested quietly. She slept 8 hours." 09/01/21: The patient was seen in the activity room eating breakfast this morning, she is calm. REVIEW OF SYSTEMS Constitutional: Negative for weight loss ENT: Negative for stridor Respiratory: Negative for cough or hemoptysis All other systems reviewed and are negative MENTAL STATUS EXAMINATION General Appearance and Behavior: Age appropriate, good hygiene, wearing appropriate clothes. Cooperation: cooperative Psychomotor Behavior: Psychomotor normal Mood: unable to assess Affect and affective range: congruent with stated mood Thought Process: unable to assess Thought Content: None Speech: Non verbal Homicidal Ideation: unable to assess Hallucinations: unable to assess Delusions: None elicited Impulse Control: Imparied Insight and Judgment: Poor Memory:Poor Attention: Distractible Orientation: Confused Assessment and Plan (1) Schizophrenia Current Visit: Yes Status: Acute Treatment Plan Patient admitted for inpatient psychiatric evaluation, medication adjustment and close monitoring The patient's behavior, mood, sleep and appetite will be closely monitored. Patient enrolled in individual and group therapeutic sessions and encouraged to attend. Patient provided with a safe and structured environment. Patient's physical health needs will be addressed by the Hospitalist. Hospita list Consulted Labs including CBC, CMP, Lipid profile and Hemoglobin A1C levels ordered for baseline reference Social Assessment will be completed and the Stock Worker will work with patient and family to ensure a suitable and safe disposition Medication adjustment will be made as clinically indicated Continue Zoloft 25mg po daily Continue Abilify 5mg po daily Continue Trazodone 50mg po qhs Continue Melatonin 5mg po qhs prn insomnia Usual Wellness [place]/Preservation: - Start Trazodone 50 mg po QHS & 50 mg po QHS PRN between 10 PM & 2 AM for insomnia - Start Melatonin 5 mg po QHS to promote circadian rhythm The patient agreed on the treatment plan, understood the risk, benefit, alternative treatment, potential consequence of no treatment, and gave informed consent. Estimated days: 5 Post hospital care: primary care provider, psychiatric provider Case staffed with Dr. Briones Medications and Allergies Medications and Allergies Allergies Allergy/AdvReac Type Severity Reaction Status Date / Time No Known Allergies Allergy Verified 08/26/21 03:16 Active Meds: Active Medications Amlodipine Besylate (Amlodipine 5 Mg Tab) 5 mg PO QDAY [facility] Last Admin: 08/31/21 11:59 Dose: 5 mg Documented by: Aripiprazole (Aripiprazole 5 Mg Tab) 5 mg PO QDAY [facility] Last Admin: 08/31/21 11:59 Dose: 5 mg Documented by: Melatonin (Melatonin 5 Mg Tab) 5 mg PO QHS PRN PRN Reason: Sleep Last Admin: 08/31/21 21:08 Dose: 5 mg Documented by: Sertraline HCl (Sertraline 25 Mg Tab) 25 mg PO QDAY [facility] Last Admin: 08/31/21 12:01 Dose: 25 mg Documented by: Trazodone HCl (Trazodone 50 Mg Tab) 50 mg PO QHS [facility] Last Admin: 08/31/21 21:08 Dose: 50 mg Documented by: Results - Results Labs/Vitals: Laboratory Last Values WBC 4.1 K/mm3 (4.5-11.0) L 08/26/21 13:40 RBC 3.62 M/mm3 (3.65-5.03) L 08/26/21 13:40 Hgb 12.8 gm/dl (10.1-14.3) 08/26/21 13:40 Hct 37.5 % (30.3-42.9) 08/26/21 13:40 MCV 104 fl (79-97) H 08/26/21 13:40 MCH 35 pg (28-32) H 08/26/21 13:40 MCHC 34 % (30-34) 08/26/21 13:40 RDW 13.4 % (13.2-15.2) 08/26/21 13:40 Plt Count 165 K/mm3 (140-440) 08/26/21 13:40 Lymph % (Auto) 31.0 % (13.4-35.0) 08/26/21 13:40 [place] % (Auto) 7.4 % (0.0-7.3) H 08/26/21 13:40 Eos % (Auto) 0.1 % (0.0-4.3) 08/26/21 13:40 Baso % (Auto) 0.3 % (0.0-1.8) 08/26/21 13:40 Lymph # (Auto) 1.3 K/mm3 (1.2-5.4) 08/26/21 13:40 [place] # (Auto) 0.3 K/mm3 (0.0-0.8) 08/26/21 13:40 Eos # (Auto) 0.0 K/mm3 (0.0-0.4) 08/26/21 13:40 Baso # (Auto) 0.0 K/mm3 (0.0-0.1) 08/26/21 13:40 Seg Neutrophils % 61.2 % (40.0-70.0) 08/26/21 13:40 Seg Neutrophils # 2.5 K/mm3 (1.8-7.7) 08/26/21 13:40 Sodium 140 mmol/L (137-145) 08/26/21 13:40 Potassium 4.3 mmol/L (3.6-5.0) 08/26/21 13:40 Chloride 102.8 mmol/L (98-107) 08/26/21 13:40 Carbon Dioxide 26 mmol/L (22-30) 08/26/21 13:40 Anion Gap 16 mmol/L 08/26/21 13:40 BUN 13 mg/dL (7-17) 08/26/21 13:40 Creatinine 0.5 mg/dL (0.6-1.2) L 08/26/21 13:40 Estimated GFR > 60 ml/min 08/26/21 13:40 BUN/Creatinine Ratio 26 % 08/26/21 13:40 Glucose 134 mg/dL (65-100) H 08/26/21 13:40 POC Glucose 106 mg/dL (70-105) H 09/01/21 06:29 Hemoglobin A1c 5.6 % (4-6) 08/26/21 13:40 Calcium 8.8 mg/dL (8.4-10.2) 08/26/21 13:40 Total Bilirubin 0.40 mg/dL (0.1-1.2) 08/26/21 13:40 AST 26 units/L (5-40) 08/26/21 13:40 ALT 17 units/L (7-56) 08/26/21 13:40 Alkaline Phosphatase 133 units/L (35-129) H 08/26/21 13:40 Total Protein 8.6 g/dL (6.3-8.2) H 08/26/21 13:40 Albumin 3.3 g/dL (3.9-5) L 08/26/21 13:40 Albumin/Globulin Ratio 0.6 % 08/26/21 13:40 Triglycerides 174 mg/dL (2-149) H 08/26/21 13:40 Cholesterol 145 mg/dL (50-199) 08/26/21 13:40 LDL Cholesterol Direct 97 mg/dL (50-130) 08/26/21 13:40 HDL Cholesterol 31 mg/dL (40-59) L 08/26/21 13:40 Cholesterol/HDL Ratio 4.67 % 08/26/21 13:40 TSH 3.330 mlU/mL (0.270-4.200) 08/26/21 13:40 Last Vital Signs Temp 97.5 F L 08/31/21 22:00 Pulse 69 08/31/21 22:00 Resp 18 08/31/21 22:00 BP 121/65 08/31/21 22:00 Pulse Ox 97 08/31/21 22:00
--- NOTE | 2021-09-01 15:49 | Progress Note ---
Assessment and Plan Assessment and plan: #Hypertension -BP at goal -continue amlodipine 5mg qday -will continue to monitor #Reported history of type 2 diabetes -Hemoglobin A1c 5.6% -accuchecks have been in the low 100s -no intervention needed #Schizophrenia #Suicidal ideation -Management per primary We will continue to follow. Disposition Plan: Continue medical management Total Time Spent with Patient (Minutes): 30 min History Interval history: No acute events over night. The patient denies fevers, chills, nausea, vomiting, abdominal pain, chest pain/pressure, shortness of breath, urinary symptoms, weakness, or confusion. Hospitalist Physical - Constitutional Vitals: Temp Pulse Resp BP Pulse Ox 97.5 F L 69 18 121/65 97 08/31/21 22:00 08/31/21 22:00 08/31/21 22:00 08/31/21 22:00 08/31/21 22:00 General appearance: Present: no acute distress, other (Thin woman) - EENT Eyes: Present: PERRL, EOM intact ENT: hearing intact, clear oral mucosa, dentition normal - Neck Neck: Present: supple, normal ROM - Respiratory Respiratory effort: normal - Cardiovascular Rhythm: regular Heart Sounds: Present: S1 & S2 - Extremities Extremities: no ischemia, pulses intact, pulses symmetrical, No edema, normal temperature, normal color Peripheral Pulses: within normal limits - Abdominal General gastrointestinal: soft, non-tender, non-distended, normal bowel sounds - Integumentary Integumentary: Present: clear, warm, dry - Psychiatric Psychiatric: cooperative - Neurologic Neurologic: CNII-XII intact, moves all extremities - Allied Health Allied health notes reviewed: nursing Results - Labs CBC & Chem 7: 08/26/21 13:40 08/26/21 13:40 Labs: Laboratory Last Values WBC 4.1 K/mm3 (4.5-11.0) L 08/26/21 13:40 RBC 3.62 M/mm3 (3.65-5.03) L 08/26/21 13:40 Hgb 12.8 gm/dl (10.1-14.3) 08/26/21 13:40 Hct 37.5 % (30.3-42.9) 08/26/21 13:40 MCV 104 fl (79-97) H 08/26/21 13:40 MCH 35 pg (28-32) H 08/26/21 13:40 MCHC 34 % (30-34) 08/26/21 13:40 RDW 13.4 % (13.2-15.2) 08/26/21 13:40 Plt Count 165 K/mm3 (140-440) 08/26/21 13:40 Lymph % (Auto) 31.0 % (13.4-35.0) 08/26/21 13:40 [place] % (Auto) 7.4 % (0.0-7.3) H 08/26/21 13:40 Eos % (Auto) 0.1 % (0.0-4.3) 08/26/21 13:40 Baso % (Auto) 0.3 % (0.0-1.8) 08/26/21 13:40 Lymph # (Auto) 1.3 K/mm3 (1.2-5.4) 08/26/21 13:40 [place] # (Auto) 0.3 K/mm3 (0.0-0.8) 08/26/21 13:40 Eos # (Auto) 0.0 K/mm3 (0.0-0.4) 08/26/21 13:40 Baso # (Auto) 0.0 K/mm3 (0.0-0.1) 08/26/21 13:40 Seg Neutrophils % 61.2 % (40.0-70.0) 08/26/21 13:40 Seg Neutrophils # 2.5 K/mm3 (1.8-7.7) 08/26/21 13:40 Sodium 140 mmol/L (137-145) 08/26/21 13:40 Potassium 4.3 mmol/L (3.6-5.0) 08/26/21 13:40 Chloride 102.8 mmol/L (98-107) 08/26/21 13:40 Carbon Dioxide 26 mmol/L (22-30) 08/26/21 13:40 Anion Gap 16 mmol/L 08/26/21 13:40 BUN 13 mg/dL (7-17) 08/26/21 13:40 Creatinine 0.5 mg/dL (0.6-1.2) L 08/26/21 13:40 Estimated GFR > 60 ml/min 08/26/21 13:40 BUN/Creatinine Ratio 26 % 08/26/21 13:40 Glucose 134 mg/dL (65-100) H 08/26/21 13:40 POC Glucose 106 mg/dL (70-105) H 09/01/21 06:29 Hemoglobin A1c 5.6 % (4-6) 08/26/21 13:40 Calcium 8.8 mg/dL (8.4-10.2) 08/26/21 13:40 Total Bilirubin 0.40 mg/dL (0.1-1.2) 08/26/21 13:40 AST 26 units/L (5-40) 08/26/21 13:40 ALT 17 units/L (7-56) 08/26/21 13:40 Alkaline Phosphatase 133 units/L (35-129) H 08/26/21 13:40 Total Protein 8.6 g/dL (6.3-8.2) H 08/26/21 13:40 Albumin 3.3 g/dL (3.9-5) L 08/26/21 13:40 Albumin/Globulin Ratio 0.6 % 08/26/21 13:40 Triglycerides 174 mg/dL (2-149) H 08/26/21 13:40 Cholesterol 145 mg/dL (50-199) 08/26/21 13:40 LDL Cholesterol Direct 97 mg/dL (50-130) 08/26/21 13:40 HDL Cholesterol 31 mg/dL (40-59) L 08/26/21 13:40 Cholesterol/HDL Ratio 4.67 % 08/26/21 13:40 TSH 3.330 mlU/mL (0.270-4.200) 08/26/21 13:40 Zamora/IV: Voiding Method Toilet Active Medications - Current Medications Current Medications: Generic Name Dose Route Start Last Admin Trade Name Freq PRN Reason Stop Dose Admin Amlodipine Besylate 5 mg 08/29/21 10:00 08/31/21 11:59 Amlodipine 5 Mg Tab PO 5 mg QDAY AZEB Administration Aripiprazole 5 mg 08/26/21 15:00 08/31/21 11:59 Aripiprazole 5 Mg Tab PO 5 mg QDAY AZEB Administration Melatonin 5 mg 08/26/21 03:19 08/31/21 21:08 Melatonin 5 Mg Tab PO 5 mg QHS PRN Administration Sleep Sertraline HCl 25 mg 08/26/21 15:00 08/31/21 12:01 Sertraline 25 Mg Tab PO 25 mg QDAY AZEB Administration Trazodone HCl 50 mg 08/26/21 22:00 08/31/21 21:08 Trazodone 50 Mg Tab PO 50 mg QHS AZEB Administration
[2021-09-01] MEDS: traZODone 50 MG TAB PO SCH (21:42)
--- NOTE | 2021-09-02 07:58 | Progress Note ---
Subjective Date of service: 09/02/21 Principal diagnosis: SI Subjective Comment: 08/29/21:The patient seen this morning, she continues to be confused and pacing. A beamer helper via the language line was used for this assessment. the patient states she feels normal but admits having auditory hallucinations. 08/30/21: The patient was seen sleeping. Per nurse: "Pt slept for approximately 3/4 hours. Came out wandering on the hallway when another pt was disrupting the unit. She was easy to redirect." 08/31/21:The patient was seen this morning, she is calm and resting in bed. Per nurse "Last evening the patient spent in the activity room with peers. She has minimal interactions but has a language barrier. She presents as calmer and there was no evidence of AVH. Her appetite is fair and she is medication compliant. Overnight the patient rested quietly. She slept 8 hours." 09/01/21: The patient was seen in the activity room eating breakfast this morning, she is calm. 09/02/21: The patient was seen in her room, she is withdrawn and isolating. Patient unable to come to the translation phone. Collateral information from patient's son(Naomie, ): patient was on Haldol DEC- last received over a year ago. REVIEW OF SYSTEMS Constitutional: Negative for weight loss ENT: Negative for stridor Respiratory: Negative for cough or hemoptysis All other systems reviewed and are negative MENTAL STATUS EXAMINATION General Appearance and Behavior: Age appropriate, good hygiene, wearing appropriate clothes. Cooperation: cooperative Psychomotor Behavior: Psychomotor normal Mood: unable to assess Affect and affective range: congruent with stated mood Thought Process: unable to assess Thought Content: None Speech: Non verbal Homicidal Ideation: unable to assess Hallucinations: unable to assess Delusions: None elicited Impulse Control: Imparied Insight and Judgment: Poor Memory:Poor Attention: Distractible Orientation: Confused Assessment and Plan (1) Schizophrenia Current Visit: Yes Status: Acute Treatment Plan Patient admitted for inpatient psychiatric evaluation, medication adjustment and close monitoring The patient's behavior, mood, sleep and appetite will be closely monitored. Patient enrolled in individual and group therapeutic sessions and encouraged to attend. Patient provided with a safe and structured environment. Patient's physical health needs will be addressed by the Hospitalist. Hospitalist Consulted Labs including CBC, CMP, Lipid profile and Hemoglobin A1C levels ordered for baseline reference Social Assessment will be completed and the Senior Unix Administrator will work with patient and family to ensure a suitable and safe disposition Medication adjustment will be made as clinically indicated Continue Zoloft 25mg po daily Continue Abilify 5mg po daily Continue Trazodone 50mg po qhs Continue Melatonin 5mg po qhs prn insomnia Usual Wellness [place]/Preservation: - Start Trazodone 50 mg po QHS & 50 mg po QHS PRN between 10 PM & 2 AM for insomnia - Start Melatonin 5 mg po QHS to promote circadian rhythm The patient agreed on the treatment plan, understood the risk, benefit, alternative treatment, potential consequence of no treatment, and gave informed consent. Estimated days: 5 Post hospital care: primary care provider, psychiatric provider Case staffed with Dr. Briones Medications and Allergies Medications and Allergies Allergies Allergy/AdvReac Type Severity Reaction Status Date / Time No Known Allergies Allergy Verified 08/26/21 03:16 Active Meds: Active Medications Amlodipine Besylate (Amlodipine 5 Mg Tab) 5 mg PO QDAY [facility] Last Admin: 09/01/21 12:36 Dose: 5 mg Documented by: Aripiprazole (Aripiprazole 5 Mg Tab) 5 mg PO QDAY [facility] Last Admin: 09/01/21 12:36 Dose: 5 mg Documented by: Melatonin (Melatonin 5 Mg Tab) 5 mg PO QHS PRN PRN Reason: Sleep Last Admin: 08/31/21 21:08 Dose: 5 mg Documented by: Sertraline HCl (Sertraline 25 Mg Tab) 25 mg PO QDAY [facility] Last Admin: 09/01/21 12:37 Dose: 25 mg Documented by: Trazodone HCl (Trazodone 50 Mg Tab) 50 mg PO QHS [facility] Last Admin: 09/01/21 21:42 Dose: Not Given Documented by: Results - Results Labs/Vitals: Laboratory Last Values WBC 4.1 K/mm3 (4.5-11.0) L 08/26/21 13:40 RBC 3.62 M/mm3 (3.65-5.03) L 08/26/21 13:40 Hgb 12.8 gm/dl (10.1-14.3) 08/26/21 13:40 Hct 37.5 % (30.3-42.9) 08/26/21 13:40 MCV 104 fl (79-97) H 08/26/21 13:40 MCH 35 pg (28-32) H 08/26/21 13:40 MCHC 34 % (30-34) 08/26/21 13:40 RDW 13.4 % (13.2-15.2) 08/26/21 13:40 Plt Count 165 K/mm3 (140-440) 08/26/21 13:40 Lymph % (Auto) 31.0 % (13.4-35.0) 08/26/21 13:40 [place] % (Auto) 7.4 % (0.0-7.3) H 08/26/21 13:40 Eos % (Auto) 0.1 % (0.0-4.3) 08/26/21 13:40 Baso % (Auto) 0.3 % (0.0-1.8) 08/26/21 13:40 Lymph # (Auto) 1.3 K/mm3 (1.2-5.4) 08/26/21 13:40 [place] # (Auto) 0.3 K/mm3 (0.0-0.8) 08/26/21 13:40 Eos # (Auto) 0.0 K/mm3 (0.0-0.4) 08/26/21 13:40 Baso # (Auto) 0.0 K/mm3 (0.0-0.1) 08/26/21 13:40 Seg Neutrophils % 61.2 % (40.0-70.0) 08/26/21 13:40 Seg Neutrophils # 2.5 K/mm3 (1.8-7.7) 08/26/21 13:40 Sodium 140 mmol/L (137-145) 08/26/21 13:40 Potassium 4.3 mmol/L (3.6-5.0) 08/26/21 13:40 Chloride 102.8 mmol/L (98-107) 08/26/21 13:40 Carbon Dioxide 26 mmol/L (22-30) 08/26/21 13:40 Anion Gap 16 mmol/L 08/26/21 13:40 BUN 13 mg/dL (7-17) 08/26/21 13:40 Creatinine 0.5 mg/dL (0.6-1.2) L 08/26/21 13:40 Estimated GFR > 60 ml/min 08/26/21 13:40 BUN/Creatinine Ratio 26 % 08/26/21 13:40 Glucose 134 mg/dL (65-100) H 08/26/21 13:40 POC Glucose 114 mg/dL (70-105) H 09/02/21 07:33 Hemoglobin A1c 5.6 % (4-6) 08/26/21 13:40 Calcium 8.8 mg/dL (8.4-10.2) 08/26/21 13:40 Total Bilirubin 0.40 mg/dL (0.1-1.2) 08/26/21 13:40 AST 26 units/L (5-40) 08/26/21 13:40 ALT 17 units/L (7-56) 08/26/21 13:40 Alkaline Phosphatase 133 units/L (35-129) H 08/26/21 13:40 Total Protein 8.6 g/dL (6.3-8.2) H 08/26/21 13:40 Albumin 3.3 g/dL (3.9-5) L 08/26/21 13:40 Albumin/Globulin Ratio 0.6 % 08/26/21 13:40 Triglycerides 174 mg/dL (2-149) H 08/26/21 13:40 Cholesterol 145 mg/dL (50-199) 08/26/21 13:40 LDL Cholesterol Direct 97 mg/dL (50-130) 08/26/21 13:40 HDL Cholesterol 31 mg/dL (40-59) L 08/26/21 13:40 Cholesterol/HDL Ratio 4.67 % 08/26/21 13:40 TSH 3.330 mlU/mL (0.270-4.200) 08/26/21 13:40 Last Vital Signs Temp 98.5 F 09/01/21 19:10 Pulse 82 09/01/21 20:00 Resp 16 09/01/21 19:10 BP 124/76 09/01/21 19:10 Pulse Ox 98 09/01/21 20:00
[2021-09-02] MEDS: SERTRALINE 25 MG TAB PO SCH (11:21)
[2021-09-02] MEDS: amLODIPine 5 MG TAB PO SCH (11:21)
[2021-09-02] MEDS: ARIPiprazole 5 MG TAB PO SCH (11:21)
--- NOTE | 2021-09-02 15:16 | Progress Note ---
Assessment and Plan Assessment and plan: #Hypertension -BP at goal -continue amlodipine 5mg qday -will continue to monitor #Reported history of type 2 diabetes -Hemoglobin A1c 5.6% -accuchecks have been in the low 100s -no intervention needed #Schizophrenia #Suicidal ideation -Management per primary Medicine will be signing off. Please all hesitate to reach out should any questions arise. Disposition Plan: Continue medical management. Total Time Spent with Patient (Minutes): 20 minutes History Interval history: No acute events overnight. Hospitalist Physical - Constitutional Vitals: Temp Pulse Resp BP Pulse Ox 98.7 F 73 16 124/70 93 09/02/21 09:21 09/02/21 09:21 09/02/21 09:21 09/02/21 09:21 09/02/21 09:21 General appearance: Present: no acute distress, other (Thin woman) - EENT Eyes: Present: PERRL, EOM intact ENT: hearing intact, clear oral mucosa, dentition normal - Neck Neck: Present: supple, normal ROM - Respiratory Respiratory effort: normal Respiratory: bilateral: CTA - Cardiovascular Rhythm: regular Heart Sounds: Present: S1 & S2 - Extremities Extremities: no ischemia, pulses intact, pulses symmetrical, No edema, normal temperature, normal color Peripheral Pulses: within normal limits - Abdominal General gastrointestinal: soft, non-tender, non-distended, normal bowel sounds - Integumentary Integumentary: Present: clear, warm, dry - Psychiatric Psychiatric: cooperative - Neurologic Neurologic: CNII-XII intact, moves all extremities - Allied Health Allied health notes reviewed: nursing Results - Labs CBC & Chem 7: 08/26/21 13:40 08/26/21 13:40 Labs: Laboratory Last Values WBC 4.1 K/mm3 (4.5-11.0) L 08/26/21 13:40 RBC 3.62 M/mm3 (3.65-5.03) L 08/26/21 13:40 Hgb 12.8 gm/dl (10.1-14.3) 08/26/21 13:40 Hct 37.5 % (30.3-42.9) 08/26/21 13:40 MCV 104 fl (79-97) H 08/26/21 13:40 MCH 35 pg (28-32) H 08/26/21 13:40 MCHC 34 % (30-34) 08/26/21 13:40 RDW 13.4 % (13.2-15.2) 08/26/21 13:40 Plt Count 165 K/mm3 (140-440) 08/26/21 13:40 Lymph % (Auto) 31.0 % (13.4-35.0) 08/26/21 13:40 [place] % (Auto) 7.4 % (0.0-7.3) H 08/26/21 13:40 Eos % (Auto) 0.1 % (0.0-4.3) 08/26/21 13:40 Baso % (Auto) 0.3 % (0.0-1.8) 08/26/21 13:40 Lymph # (Auto) 1.3 K/mm3 (1.2-5.4) 08/26/21 13:40 [place] # (Auto) 0.3 K/mm3 (0.0-0.8) 08/26/21 13:40 Eos # (Auto) 0.0 K/mm3 (0.0-0.4) 08/26/21 13:40 Baso # (Auto) 0.0 K/mm3 (0.0-0.1) 08/26/21 13:40 Seg Neutrophils % 61.2 % (40.0-70.0) 08/26/21 13:40 Seg Neutrophils # 2.5 K/mm3 (1.8-7.7) 08/26/21 13:40 Sodium 140 mmol/L (137-145) 08/26/21 13:40 Potassium 4.3 mmol/L (3.6-5.0) 08/26/21 13:40 Chloride 102.8 mmol/L (98-107) 08/26/21 13:40 Carbon Dioxide 26 mmol/L (22-30) 08/26/21 13:40 Anion Gap 16 mmol/L 08/26/21 13:40 BUN 13 mg/dL (7-17) 08/26/21 13:40 Creatinine 0.5 mg/dL (0.6-1.2) L 08/26/21 13:40 Estimated GFR > 60 ml/min 08/26/21 13:40 BUN/Creatinine Ratio 26 % 08/26/21 13:40 Glucose 134 mg/dL (65-100) H 08/26/21 13:40 POC Glucose 114 mg/dL (70-105) H 09/02/21 07:33 Hemoglobin A1c 5.6 % (4-6) 08/26/21 13:40 Calcium 8.8 mg/dL (8.4-10.2) 08/26/21 13:40 Total Bilirubin 0.40 mg/dL (0.1-1.2) 08/26/21 13:40 AST 26 units/L (5-40) 08/26/21 13:40 ALT 17 units/L (7-56) 08/26/21 13:40 Alkaline Phosphatase 133 units/L (35-129) H 08/26/21 13:40 Total Protein 8.6 g/dL (6.3-8.2) H 08/26/21 13:40 Albumin 3.3 g/dL (3.9-5) L 08/26/21 13:40 Albumin/Globulin Ratio 0.6 % 08/26/21 13:40 Triglycerides 174 mg/dL (2-149) H 08/26/21 13:40 Cholesterol 145 mg/dL (50-199) 08/26/21 13:40 LDL Cholesterol Direct 97 mg/dL (50-130) 08/26/21 13:40 HDL Cholesterol 31 mg/dL (40-59) L 08/26/21 13:40 Cholesterol/HDL Ratio 4.67 % 08/26/21 13:40 TSH 3.330 mlU/mL (0.270-4.200) 08/26/21 13:40 Zamora/IV: Voiding Method Toilet Active Medications - Current Medications Current Medications: Generic Name Dose Route Start Last Admin Trade Name Freq PRN Reason Stop Dose Admin Amlodipine Besylate 5 mg 08/29/21 10:00 09/02/21 11:21 Amlodipine 5 Mg Tab PO 5 mg QDAY AZEB Administration Haloperidol 5 mg 09/03/21 10:00 Haloperidol 5 Mg Tab PO DAILY AZEB Haloperidol Decanoate 50 mg 09/04/21 16:00 Haloperidol Decanoate 100 Mg/1 Ml Inj IM 09/04/21 16:01 ONCE ONE Melatonin 5 mg 08/26/21 03:19 08/31/21 21:08 Melatonin 5 Mg Tab PO 5 mg QHS PRN Administration Sleep Sertraline HCl 25 mg 08/26/21 15:00 09/02/21 11:21 Sertraline 25 Mg Tab PO 25 mg QDAY AZEB Administration Trazodone HCl 50 mg 08/26/21 22:00 09/01/21 21:42 Trazodone 50 Mg Tab PO Not Given QHS AZEB
[2021-09-02] MEDS: traZODone 50 MG TAB PO SCH (21:21)
[2021-09-03] MEDS: amLODIPine 5 MG TAB PO SCH (09:42)
[2021-09-03] MEDS: SERTRALINE 25 MG TAB PO SCH (09:42)
[2021-09-03] MEDS: HALOPERIDOL 5 MG TAB PO SCH (09:42)
--- NOTE | 2021-09-03 09:55 | Progress Note ---
Subjective Date of service: 09/03/21 Principal diagnosis: SI Subjective Comment: 08/29/21:The patient seen this morning, she continues to be confused and pacing. A transfill technician via the language line was used for this assessment. the patient states she feels normal but admits having auditory hallucinations. 08/30/21: The patient was seen sleeping. Per nurse: "Pt slept for approximately 3/4 hours. Came out wandering on the hallway when another pt was disrupting the unit. She was easy to redirect." 08/31/21:The patient was seen this morning, she is calm and resting in bed. Per nurse "Last evening the patient spent in the activity room with peers. She has minimal interactions but has a language barrier. She presents as calmer and there was no evidence of AVH. Her appetite is fair and she is medication compliant. Overnight the patient rested quietly. She slept 8 hours." 09/01/21: The patient was seen in the activity room eating breakfast this morning, she is calm. 09/02/21: The patient was seen in her room, she is withdrawn and isolating. Patient unable to come to the translation phone. Collateral information from patient's son(Naomie, ): patient was on Haldol DEC- last received over a year ago. 09/03/21: The patient was seen in the activity room this morning. She continue to isolate, however, she is calm and not pacing. No no evidence of AVH. REVIEW OF SYSTEMS Constitutional: Negative for weight loss ENT: Negative for stridor Respiratory: Negative for cough or hemoptysis All other systems reviewed and are negative MENTAL STATUS EXAMINATION General Appearance and Behavior: Age appropriate, good hygiene, wearing appropriate clothes. Cooperation: cooperative Psychomotor Behavior: Psychomotor normal Mood: unable to assess Affect and affective range: congruent with stated mood Thought Process: unable to assess Thought Content: None Speech: Non verbal Homicidal Ideation: unable to assess Hallucinations: None Delusions: None elicited Impulse Control: Imparied Insight and Judgment: Poor Memory:Poor Attention: Distractible Orientation: Confused Assessment and Plan (1) Schizophrenia Current Visit: Yes Status: Acute Treatment Plan Patient admitted for inpatient psychiatric evaluation, medication adjustment and close monitoring The patient's behavior, mood, sleep and appetite will be closely monitored. Patient enrolled in individual and group therapeutic sessions and encouraged to attend. Patient provided with a safe and structured environment. Patient's physical health needs will be addressed by the Hospitalist. Hospitalist Consulted Labs including CBC, CMP, Lipid profile and Hemoglobin A1C levels ordered for baseline reference Social Assessment will be completed and the Manager Speech will work with patient and family to ensure a suitable and safe disposition Medication adjustment will be made as clinically indicated Continue Zoloft 25mg po daily Continue Abilify 5mg po daily Continue Trazodone 50mg po qhs Continue Melatonin 5mg po qhs prn insomnia Usual Wellness Nondenominational/Preservation: - Start Trazodone 50 mg po QHS & 50 mg po QHS PRN between 10 PM & 2 AM for insomnia - Start Melatonin 5 mg po QHS to promote circadian rhythm The patient agreed on the treatment plan, understood the risk, benefit, altern ative treatment, potential consequence of no treatment, and gave informed consent. Estimated days: 5 Post hospital care: primary care provider, psychiatric provider Case staffed with Dr. Briones Medications and Allergies Medications and Allergies Allergies Allergy/AdvReac Type Severity Reaction Status Date / Time No Known Allergies Allergy Verified 08/26/21 03:16 Active Meds: Active Medications Amlodipine Besylate (Amlodipine 5 Mg Tab) 5 mg PO QDAY [facility] Last Admin: 09/03/21 09:42 Dose: 5 mg Documented by: Haloperidol (Haloperidol 5 Mg Tab) 5 mg PO DAILY [facility] Last Admin: 09/03/21 09:42 Dose: 5 mg Documented by: Haloperidol Decanoate (Haloperidol Decanoate 100 Mg/1 Ml Inj) 50 mg IM ONCE ONE Stop: 09/04/21 16:01 Melatonin (Melatonin 5 Mg Tab) 5 mg PO QHS PRN PRN Reason: Sleep Last Admin: 08/31/21 21:08 Dose: 5 mg Documented by: Sertraline HCl (Sertraline 25 Mg Tab) 25 mg PO QDAY [facility] Last Admin: 09/03/21 09:42 Dose: 25 mg Documented by: Trazodone HCl (Trazodone 50 Mg Tab) 50 mg PO QHS [facility] Last Admin: 09/02/21 21:21 Dose: 50 mg Documented by: Results - Results Labs/Vitals: Laboratory Last Values WBC 4.1 K/mm3 (4.5-11.0) L 08/26/21 13:40 RBC 3.62 M/mm3 (3.65-5.03) L 08/26/21 13:40 Hgb 12.8 gm/dl (10.1-14.3) 08/26/21 13:40 Hct 37.5 % (30.3-42.9) 08/26/21 13:40 MCV 104 fl (79-97) H 08/26/21 13:40 MCH 35 pg (28-32) H 08/26/21 13:40 MCHC 34 % (30-34) 08/26/21 13:40 RDW 13.4 % (13.2-15.2) 08/26/21 13:40 Plt Count 165 K/mm3 (140-440) 08/26/21 13:40 Lymph % (Auto) 31.0 % (13.4-35.0) 08/26/21 13:40 [place] % (Auto) 7.4 % (0.0-7.3) H 08/26/21 13:40 Eos % (Auto) 0.1 % (0.0-4.3) 08/26/21 13:40 Baso % (Auto) 0.3 % (0.0-1.8) 08/26/21 13:40 Lymph # (Auto) 1.3 K/mm3 (1.2-5.4) 08/26/21 13:40 [place] # (Auto) 0.3 K/mm3 (0.0-0.8) 08/26/21 13:40 Eos # (Auto) 0.0 K/mm3 (0.0-0.4) 08/26/21 13:40 Baso # (Auto) 0.0 K/mm3 (0.0-0.1) 08/26/21 13:40 Seg Neutrophils % 61.2 % (40.0-70.0) 08/26/21 13:40 Seg Neutrophils # 2.5 K/mm3 (1.8-7.7) 08/26/21 13:40 Sodium 140 mmol/L (137-145) 08/26/21 13:40 Potassium 4.3 mmol/L (3.6-5.0) 08/26/21 13:40 Chloride 102.8 mmol/L (98-107) 08/26/21 13:40 Carbon Dioxide 26 mmol/L (22-30) 08/26/21 13:40 Anion Gap 16 mmol/L 08/26/21 13:40 BUN 13 mg/dL (7-17) 08/26/21 13:40 Creatinine 0.5 mg/dL (0.6-1.2) L 08/26/21 13:40 Estimated GFR > 60 ml/min 08/26/21 13:40 BUN/Creatinine Ratio 26 % 08/26/21 13:40 Glucose 134 mg/dL (65-100) H 08/26/21 13:40 POC Glucose 130 mg/dL (70-105) H 09/03/21 06:13 Hemoglobin A1c 5.6 % (4-6) 08/26/21 13:40 Calcium 8.8 mg/dL (8.4-10.2) 08/26/21 13:40 Total Bilirubin 0.40 mg/dL (0.1-1.2) 08/26/21 13:40 AST 26 units/L (5-40) 08/26/21 13:40 ALT 17 units/L (7-56) 08/26/21 13:40 Alkaline Phosphatase 133 units/L (35-129) H 08/26/21 13:40 Total Protein 8.6 g/dL (6.3-8.2) H 08/26/21 13:40 Albumin 3.3 g/dL (3.9-5) L 08/26/21 13:40 Albumin/Globulin Ratio 0.6 % 08/26/21 13:40 Triglycerides 174 mg/dL (2-149) H 08/26/21 13:40 Cholesterol 145 mg/dL (50-199) 08/26/21 13:40 LDL Cholesterol Direct 97 mg/dL (50-130) 08/26/21 13:40 HDL Cholesterol 31 mg/dL (40-59) L 08/26/21 13:40 Cholesterol/HDL Ratio 4.67 % 08/26/21 13:40 TSH 3.330 mlU/mL (0.270-4.200) 08/26/21 13:40 Last Vital Signs Temp 98.7 F 09/03/21 08:01 Pulse 77 09/03/21 09:42 Resp 16 09/03/21 08:01 BP 124/75 09/03/21 09:42 Pulse Ox 95 09/03/21 08:01
[2021-09-03] MEDS: traZODone 50 MG TAB PO SCH (21:17)
--- NOTE | 2021-09-04 10:16 | Progress Note ---
Subjective Date of service: 09/04/21 Principal diagnosis: SI Subjective Comment: The patient was seen today. She is calm and cooperative. She is lying down in the dayroom. She is smiling and waves at me. REVIEW OF SYSTEMS Constitutional: Negative for weight loss ENT: Negative for stridor Respiratory: Negative for cough or hemoptysis All other systems reviewed and are negative MENTAL STATUS EXAMINATION General Appearance and Behavior: Age appropriate, good hygiene, wearing appropriate clothes. Cooperation: cooperative Psychomotor Behavior: Psychomotor normal Mood: Depressed, sad Affect and affective range: congruent with stated mood Thought Process: circumstantial Thought Content: None Speech: Normal volume, Regular rate and rhythm, Russian speaking Suicidal Ideation: yes, passive Homicidal Ideation: Denies Hallucinations: auditory Delusions: None elicited Impulse Control: Imparied Insight and Judgment: Poor Memory:Poor Attention: Distractible Orientation: Confused Assessment and Plan (1) Schizophrenia Current Visit: Yes Status: Acute Treatment Plan Patient admitted for inpatient psychiatric evaluation, medication adjustment and close monitoring The patient's behavior, mood, sleep and appetite will be closely monitored. Patient enrolled in individual and group therapeutic sessions and encouraged to attend. Patient provided with a safe and structured environment. Patient's physical health needs will be addressed by the Hospitalist. Hospitalist Consulted Labs including CBC, CMP, Lipid profile and Hemoglobin A1C levels ordered for baseline reference Social Assessment will be completed and the Director Of Pharmacy will work with patient and family to ensure a suitable and safe disposition Medication adjustment will be made as clinically indicated Continue meds Usual Wellness Shinto/Preservation: - Start Trazodone 50 mg po QHS & 50 mg po QHS PRN between 10 PM & 2 AM for insomnia - Start Melatonin 5 mg po QHS to promote circadian rhythm The patient agreed on the treatment plan, understood the risk, benefit, alternative treatment, potential consequence of no treatment, and gave informed consent. Estimated days: 7 Post hospital care: primary care provider, psychiatric provider Case staffed with Dr. Briones Medications and Allergies Allergies Allergy/AdvReac Type Severity Reaction Status Date / Time No Known Allergies Allergy Verified 08/26/21 03:16 Active Meds: Active Medications Amlodipine Besylate (Amlodipine 5 Mg Tab) 5 mg PO QDAY [facility] Last Admin: 09/03/21 09:42 Dose: 5 mg Documented by: Haloperidol (Haloperidol 5 Mg Tab) 5 mg PO DAILY [facility] Last Admin: 09/03/21 09:42 Dose: 5 mg Documented by: Haloperidol Decanoate (Haloperidol Decanoate 100 Mg/1 Ml Inj) 50 mg IM ONCE ONE Stop: 09/04/21 16:01 Melatonin (Melatonin 5 Mg Tab) 5 mg PO QHS PRN PRN Reason: Sleep Last Admin: 08/31/21 21:08 Dose: 5 mg Documented by: Sertraline HCl (Sertraline 25 Mg Tab) 25 mg PO QDAY [facility] Last Admin: 09/03/21 09:42 Dose: 25 mg Documented by: Trazodone HCl (Trazodone 50 Mg Tab) 50 mg PO QHS [facility] Last Admin: 09/03/21 21:17 Dose: 50 mg Documented by: Results - Results Labs/Vitals: Laboratory Last Values WBC 4.1 K/mm3 (4.5-11.0) L 08/26/21 13:40 RBC 3.62 M/mm3 (3.65-5.03) L 08/26/21 13:40 Hgb 12.8 gm/dl (10.1-14.3) 08/26/21 13:40 Hct 37.5 % (30.3-42.9) 08/26/21 13:40 MCV 104 fl (79-97) H 08/26/21 13:40 MCH 35 pg (28-32) H 08/26/21 13:40 MCHC 34 % (30-34) 08/26/21 13:40 RDW 13.4 % (13.2-15.2) 08/26/21 13:40 Plt Count 165 K/mm3 (140-440) 08/26/21 13:40 Lymph % (Auto) 31.0 % (13.4-35.0) 08/26/21 13:40 [place] % (Auto) 7.4 % (0.0-7.3) H 08/26/21 13:40 Eos % (Auto) 0.1 % (0.0-4.3) 08/26/21 13:40 Baso % (Auto) 0.3 % (0.0-1.8) 08/26/21 13:40 Lymph # (Auto) 1.3 K/mm3 (1.2-5.4) 08/26/21 13:40 [place] # (Auto) 0.3 K/mm3 (0.0-0.8) 08/26/21 13:40 Eos # (Auto) 0.0 K/mm3 (0.0-0.4) 08/26/21 13:40 Baso # (Auto) 0.0 K/mm3 (0.0-0.1) 08/26/21 13:40 Seg Neutrophils % 61.2 % (40.0-70.0) 08/26/21 13:40 Seg Neutrophils # 2.5 K/mm3 (1.8-7.7) 08/26/21 13:40 Sodium 140 mmol/L (137-145) 08/26/21 13:40 Potassium 4.3 mmol/L (3.6-5.0) 08/26/21 13:40 Chloride 102.8 mmol/L (98-107) 08/26/21 13:40 Carbon Dioxide 26 mmol/L (22-30) 08/26/21 13:40 Anion Gap 16 mmol/L 08/26/21 13:40 BUN 13 mg/dL (7-17) 08/26/21 13:40 Creatinine 0.5 mg/dL (0.6-1.2) L 08/26/21 13:40 Estimated GFR > 60 ml/min 08/26/21 13:40 BUN/Creatinine Ratio 26 % 08/26/21 13:40 Glucose 134 mg/dL (65-100) H 08/26/21 13:40 POC Glucose 130 mg/dL (70-105) H 09/03/21 06:13 Hemoglobin A1c 5.6 % (4-6) 08/26/21 13:40 Calcium 8.8 mg/dL (8.4-10.2) 08/26/21 13:40 Total Bilirubin 0.40 mg/dL (0.1-1.2) 08/26/21 13:40 AST 26 units/L (5-40) 08/26/21 13:40 ALT 17 units/L (7-56) 08/26/21 13:40 Alkaline Phosphatase 133 units/L (35-129) H 08/26/21 13:40 Total Protein 8.6 g/dL (6.3-8.2) H 08/26/21 13:40 Albumin 3.3 g/dL (3.9-5) L 08/26/21 13:40 Albumin/Globulin Ratio 0.6 % 08/26/21 13:40 Triglycerides 174 mg/dL (2-149) H 08/26/21 13:40 Cholesterol 145 mg/dL (50-199) 08/26/21 13:40 LDL Cholesterol Direct 97 mg/dL (50-130) 08/26/21 13:40 HDL Cholesterol 31 mg/dL (40-59) L 08/26/21 13:40 Cholesterol/HDL Ratio 4.67 % 08/26/21 13:40 TSH 3.330 mlU/mL (0.270-4.200) 08/26/21 13:40 Last Vital Signs Temp 98.7 F 09/03/21 21:42 Pulse 61 09/03/21 21:42 Resp 18 09/03/21 21:42 BP 124/75 09/03/21 21:42 Pulse Ox 95 09/03/21 08:01
[2021-09-04] MEDS: HALOPERIDOL 5 MG TAB PO SCH (11:23)
[2021-09-04] MEDS: amLODIPine 5 MG TAB PO SCH (11:23)
[2021-09-04] MEDS: SERTRALINE 25 MG TAB PO SCH (11:23)
[2021-09-04] MEDS ORDERED: HALOPERIDOL DECANOATE 100 MG/1 ML INJ IM ONE (16:00)
[2021-09-04] MEDS: traZODone 50 MG TAB PO SCH (21:43)
--- NOTE | 2021-09-05 09:55 | Progress Note ---
Subjective Date of service: 09/05/21 Principal diagnosis: SI Subjective Comment: The patient was seen today. She is calm and cooperative. The patient was led to the language line. Web Marketing Analyst utilized. The patient says she is very sad because she is ill. She was unable to elaborate on a lot and at times seemed to not understand the catering administrative assistant. She says she no longer wants to live anymore. REVIEW OF SYSTEMS Constitutional: Negative for weight loss ENT: Negative for stridor Respiratory: Negative for cough or hemoptysis All other systems reviewed and are negative MENTAL STATUS EXAMINATION General Appearance and Behavior: Age appropriate, good hygiene, wearing appropriate clothes. Cooperation: cooperative Psychomotor Behavior: Psychomotor normal Mood: Depressed, sad Affect and affective range: congruent with stated mood Thought Process: circumstantial Thought Content: None Speech: Normal volume, Regular rate and rhythm, Maltese speaking Suicidal Ideation: yes Homicidal Ideation: Denies Hallucinations: auditory Delusions: None elicited Impulse Control: Imparied Insight and Judgment: Poor Memory:Poor Attention: Distractible Orientation: Confused Assessment and Plan (1) Schizophrenia Current Visit: Yes Status: Acute Treatment Plan Patient admitted for inpatient psychiatric evaluation, medication adjustment and close monitoring The patient's behavior, mood, sleep and appetite will be closely monitored. Patient enrolled in individual and group therapeutic sessions and encouraged to attend. Patient provided with a safe and structured environment. Patient's physical health needs will be addressed by the Hospitalist. Hospitalist Consulted Labs including CBC, CMP, Lipid profile and Hemoglobin A1C levels ordered for baseline reference Social Assessment will be completed and the Director Ehs will work with patient and family to ensure a suitable and safe disposition Medication adjustment will be made as clinically indicated Increase Zoloft 50mg po daily Usual Wellness Druze/Preservation: - Start Trazodone 50 mg po QHS & 50 mg po QHS PRN between 10 PM & 2 AM for insomnia - Start Melatonin 5 mg po QHS to promote circadian rhythm The patient agreed on the treatment plan, understood the risk, benefit, alternative treatment, potential consequence of no treatment, and gave informed consent. Estimated days: 7 Post hospital care: primary care provider, psychiatric provider Case staffed with Dr. Briones Medications and Allergies Allergies Allergy/AdvReac Type Severity Reaction Status Date / Time No Known Allergies Allergy Verified 08/26/21 03:16 Active Meds: Active Medications Amlodipine Besylate (Amlodipine 5 Mg Tab) 5 mg PO QDAY [facility] Last Admin: 09/04/21 11:23 Dose: Not Given Documented by: Haloperidol (Haloperidol 5 Mg Tab) 5 mg PO DAILY [facility] Last Admin: 09/04/21 11:23 Dose: 5 mg Documented by: Melatonin (Melatonin 5 Mg Tab) 5 mg PO QHS PRN PRN Reason: Sleep Last Admin: 08/31/21 21:08 Dose: 5 mg Documented by: Sertraline HCl (Sertraline 25 Mg Tab) 25 mg PO QDAY [facility] Last Admin: 09/04/21 11:23 Dose: 25 mg Documented by: Trazodone HCl (Trazodone 50 Mg Tab) 50 mg PO QHS [facility] Last Admin: 09/04/21 21:43 Dose: 50 mg Documented by: Results - Results Labs/Vitals: Laboratory Last Values WBC 4.1 K/mm3 (4.5-11.0) L 08/26/21 13:40 RBC 3.62 M/mm3 (3.65-5.03) L 08/26/21 13:40 Hgb 12.8 gm/dl (10.1-14.3) 08/26/21 13:40 Hct 37.5 % (30.3-42.9) 08/26/21 13:40 MCV 104 fl (79-97) H 08/26/21 13:40 MCH 35 pg (28-32) H 08/26/21 13:40 MCHC 34 % (30-34) 08/26/21 13:40 RDW 13.4 % (13.2-15.2) 08/26/21 13:40 Plt Count 165 K/mm3 (140-440) 08/26/21 13:40 Lymph % (Auto) 31.0 % (13.4-35.0) 08/26/21 13:40 [place] % (Auto) 7.4 % (0.0-7.3) H 08/26/21 13:40 Eos % (Auto) 0.1 % (0.0-4.3) 08/26/21 13:40 Baso % (Auto) 0.3 % (0.0-1.8) 08/26/21 13:40 Lymph # (Auto) 1.3 K/mm3 (1.2-5.4) 08/26/21 13:40 [place] # (Auto) 0.3 K/mm3 (0.0-0.8) 08/26/21 13:40 Eos # (Auto) 0.0 K/mm3 (0.0-0.4) 08/26/21 13:40 Baso # (Auto) 0.0 K/mm3 (0.0-0.1) 08/26/21 13:40 Seg Neutrophils % 61.2 % (40.0-70.0) 08/26/21 13:40 Seg Neutrophils # 2.5 K/mm3 (1.8-7.7) 08/26/21 13:40 Sodium 140 mmol/L (137-145) 08/26/21 13:40 Potassium 4.3 mmol/L (3.6-5.0) 08/26/21 13:40 Chloride 102.8 mmol/L (98-107) 08/26/21 13:40 Carbon Dioxide 26 mmol/L (22-30) 08/26/21 13:40 Anion Gap 16 mmol/L 08/26/21 13:40 BUN 13 mg/dL (7-17) 08/26/21 13:40 Creatinine 0.5 mg/dL (0.6-1.2) L 08/26/21 13:40 Estimated GFR > 60 ml/min 08/26/21 13:40 BUN/Creatinine Ratio 26 % 08/26/21 13:40 Glucose 134 mg/dL (65-100) H 08/26/21 13:40 POC Glucose 130 mg/dL (70-105) H 09/03/21 06:13 Hemoglobin A1c 5.6 % (4-6) 08/26/21 13:40 Calcium 8.8 mg/dL (8.4-10.2) 08/26/21 13:40 Total Bilirubin 0.40 mg/dL (0.1-1.2) 08/26/21 13:40 AST 26 units/L (5-40) 08/26/21 13:40 ALT 17 units/L (7-56) 08/26/21 13:40 Alkaline Phosphatase 133 units/L (35-129) H 08/26/21 13:40 Total Protein 8.6 g/dL (6.3-8.2) H 08/26/21 13:40 Albumin 3.3 g/dL (3.9-5) L 08/26/21 13:40 Albumin/Globulin Ratio 0.6 % 08/26/21 13:40 Triglycerides 174 mg/dL (2-149) H 08/26/21 13:40 Cholesterol 145 mg/dL (50-199) 08/26/21 13:40 LDL Cholesterol Direct 97 mg/dL (50-130) 08/26/21 13:40 HDL Cholesterol 31 mg/dL (40-59) L 08/26/21 13:40 Cholesterol/HDL Ratio 4.67 % 08/26/21 13:40 TSH 3.330 mlU/mL (0.270-4.200) 08/26/21 13:40 Last Vital Signs Temp 98.3 F 09/04/21 19:48 Pulse 86 09/04/21 19:48 Resp 18 09/04/21 19:48 BP 102/63 09/04/21 19:48 Pulse Ox 95 09/04/21 19:48
[2021-09-05] MEDS: SERTRALINE 50 MG TAB PO SCH (12:41)
[2021-09-05] MEDS: amLODIPine 5 MG TAB PO SCH (12:41)
[2021-09-05] MEDS: HALOPERIDOL 5 MG TAB PO SCH (12:41)
[2021-09-05] MEDS: traZODone 50 MG TAB PO SCH (21:26)
[2021-09-06] MEDS: amLODIPine 5 MG TAB PO SCH (10:51)
[2021-09-06] MEDS: SERTRALINE 50 MG TAB PO SCH (10:52)
[2021-09-06] MEDS: HALOPERIDOL 5 MG TAB PO SCH (10:52)
--- NOTE | 2021-09-06 11:26 | Progress Note ---
Subjective Date of service: 09/06/21 Principal diagnosis: SI Subjective Comment: The patient was seen today. She is calm and cooperative. She is sitting in the dayroom. She acknowledges me when I walk up. She appears down. I spoke to the patient's son and discussed the patient's progress and baseline. He was appreciative of the call. He says the patient has been depressed. He also says his mother hallucinates and talks to people who are not there. He is asking about coming to see her. Informed him that due to COVID 19 restrictions no visitors are allowed right now for infection control measures. REVIEW OF SYSTEMS Constitutional: Negative for weight loss ENT: Negative for stridor Respiratory: Negative for cough or hemoptysis All other systems reviewed and are negative MENTAL STATUS EXAMINATION General Appearance and Behavior: Age appropriate, good hygiene, wearing appropriate clothes. Cooperation: cooperative Psychomotor Behavior: Psychomotor normal Mood: Depressed, sad Affect and affective range: congruent with stated mood Thought Process: circumstantial Thought Content: None Speech: Normal volume, Regular rate and rhythm, [place] speaking Suicidal Ideation: yes Homicidal Ideation: Denies Hallucinations: auditory Delusions: None elicited Impulse Control: Imparied Insight and Judgment: Poor Memory:Poor Attention: Distractible Orientation: Confused Assessment and Plan (1) Schizophrenia Current Visit: Yes Status: Acute Treatment Plan Patient admitted for inpatient psychiatric evaluation, medication adjustment and close monitoring The patient's behavior, mood, sleep and appetite will be closely monitored. Patient enrolled in individual and group therapeutic sessions and encouraged to attend. Patient provided with a safe and structured environment. Patient's physical health needs will be addressed by the Hospitalist. Hospitalist Consulted Labs including CBC, CMP, Lipid profile and Hemoglobin A1C levels ordered for baseline reference Social Assessment will be completed and the Hydraulic Plumber will work with patient and family to ensure a suitable and safe disposition Medication adjustment will be made as clinically indicated Increase Zoloft 50mg po daily yesterday Start Abilify 5mg po daily Usual Wellness Baptism/Preservation: - Start Trazodone 50 mg po QHS & 50 mg po QHS PRN between 10 PM & 2 AM for insomnia - Start Melatonin 5 mg po QHS to promote circadian rhythm The patient agreed on the treatment plan, understood the risk, benefit, alternative treatment, potential consequence of no treatment, and gave informed consent. Estimated days: 7 Post hospital care: primary care provider, psychiatric provider Case staffed with Dr. Briones Medications and Allergies Allergies Allergy/AdvReac Type Severity Reaction Status Date / Time No Known Allergies Allergy Verified 08/26/21 03:16 Active Meds: Active Medications Amlodipine Besylate (Amlodipine 5 Mg Tab) 5 mg PO QDAY [facility] Last Admin: 09/06/21 10:51 Dose: Not Given Documented by: Haloperidol (Haloperidol 5 Mg Tab) 5 mg PO DAILY [facility] Last Admin: 09/06/21 10:52 Dose: 5 mg Documented by: Melatonin (Melatonin 5 Mg Tab) 5 mg PO QHS PRN PRN Reason: Sleep Last Admin: 08/31/21 21:08 Dose: 5 mg Documented by: Sertraline HCl (Sertraline 50 Mg Tab) 50 mg PO QDAY [facility] Last Admin: 09/06/21 10:52 Dose: 50 mg Documented by: Trazodone HCl (Trazodone 50 Mg Tab) 50 mg PO QHS [facility] Last Admin: 09/05/21 21:26 Dose: 50 mg Documented by: Results - Results Labs/Vitals: Laboratory Last Values WBC 4.1 K/mm3 (4.5-11.0) L 08/26/21 13:40 RBC 3.62 M/mm3 (3.65-5.03) L 08/26/21 13:40 Hgb 12.8 gm/dl (10.1-14.3) 08/26/21 13:40 Hct 37.5 % (30.3-42.9) 08/26/21 13:40 MCV 104 fl (79-97) H 08/26/21 13:40 MCH 35 pg (28-32) H 08/26/21 13:40 MCHC 34 % (30-34) 08/26/21 13:40 RDW 13.4 % (13.2-15.2) 08/26/21 13:40 Plt Count 165 K/mm3 (140-440) 08/26/21 13:40 Lymph % (Auto) 31.0 % (13.4-35.0) 08/26/21 13:40 [place] % (Auto) 7.4 % (0.0-7.3) H 08/26/21 13:40 Eos % (Auto) 0.1 % (0.0-4.3) 08/26/21 13:40 Baso % (Auto) 0.3 % (0.0-1.8) 08/26/21 13:40 Lymph # (Auto) 1.3 K/mm3 (1.2-5.4) 08/26/21 13:40 [place] # (Auto) 0.3 K/mm3 (0.0-0.8) 08/26/21 13:40 Eos # (Auto) 0.0 K/mm3 (0.0-0.4) 08/26/21 13:40 Baso # (Auto) 0.0 K/mm3 (0.0-0.1) 08/26/21 13:40 Seg Neutrophils % 61.2 % (40.0-70.0) 08/26/21 13:40 Seg Neutrophils # 2.5 K/mm3 (1.8-7.7) 08/26/21 13:40 Sodium 140 mmol/L (137-145) 08/26/21 13:40 Potassium 4.3 mmol/L (3.6-5.0) 08/26/21 13:40 Chloride 102.8 mmol/L (98-107) 08/26/21 13:40 Carbon Dioxide 26 mmol/L (22-30) 08/26/21 13:40 Anion Gap 16 mmol/L 08/26/21 13:40 BUN 13 mg/dL (7-17) 08/26/21 13:40 Creatinine 0.5 mg/dL (0.6-1.2) L 08/26/21 13:40 Estimated GFR > 60 ml/min 08/26/21 13:40 BUN/Creatinine Ratio 26 % 08/26/21 13:40 Glucose 134 mg/dL (65-100) H 08/26/21 13:40 POC Glucose 130 mg/dL (70-105) H 09/03/21 06:13 Hemoglobin A1c 5.6 % (4-6) 08/26/21 13:40 Calcium 8.8 mg/dL (8.4-10.2) 08/26/21 13:40 Total Bilirubin 0.40 mg/dL (0.1-1.2) 08/26/21 13:40 AST 26 units/L (5-40) 08/26/21 13:40 ALT 17 units/L (7-56) 08/26/21 13:40 Alkaline Phosphatase 133 units/L (35-129) H 08/26/21 13:40 Total Protein 8.6 g/dL (6.3-8.2) H 08/26/21 13:40 Albumin 3.3 g/dL (3.9-5) L 08/26/21 13:40 Albumin/Globulin Ratio 0.6 % 08/26/21 13:40 Triglycerides 174 mg/dL (2-149) H 08/26/21 13:40 Cholesterol 145 mg/dL (50-199) 08/26/21 13:40 LDL Cholesterol Direct 97 mg/dL (50-130) 08/26/21 13:40 HDL Cholesterol 31 mg/dL (40-59) L 08/26/21 13:40 Cholesterol/HDL Ratio 4.67 % 08/26/21 13:40 TSH 3.330 mlU/mL (0.270-4.200) 08/26/21 13:40 Last Vital Signs Temp 98.3 F 09/06/21 08:57 Pulse 67 09/06/21 10:51 Resp 18 09/06/21 08:57 BP 98/61 09/06/21 10:51 Pulse Ox 94 09/06/21 08:57
[2021-09-06] MEDS: ARIPiprazole 5 MG TAB PO SCH (12:55)
[2021-09-06] MEDS: traZODone 50 MG TAB PO SCH (21:09)
[2021-09-07] MEDS: SERTRALINE 50 MG TAB PO SCH (10:15)
[2021-09-07] MEDS: ARIPiprazole 5 MG TAB PO SCH (10:15)
[2021-09-07] MEDS: HALOPERIDOL 5 MG TAB PO SCH (10:15)
[2021-09-07] MEDS: amLODIPine 5 MG TAB PO SCH (10:16)
--- NOTE | 2021-09-07 10:28 | Progress Note ---
Subjective Date of service: 09/07/21 Principal diagnosis: SI Subjective Comment: The patient was seen today. She is lying down in the dayroom off to herself. She is calm and cooperative. Staff says the patient appears down. The patient's son yesterday, states that the patient has been depressed and hallucinates. REVIEW OF SYSTEMS Constitutional: Negative for weight loss ENT: Negative for stridor Respiratory: Negative for cough or hemoptysis All other systems reviewed and are negative MENTAL STATUS EXAMINATION General Appearance and Behavior: Age appropriate, good hygiene, wearing appropriate clothes. Cooperation: cooperative Psychomotor Behavior: Psychomotor normal Mood: Depressed, sad Affect and affective range: congruent with stated mood Thought Process: circumstantial Thought Content: None Speech: Normal volume, Regular rate and rhythm, [place] speaking Suicidal Ideation: yes Homicidal Ideation: Denies Hallucinations: auditory Delusions: None elicited Impulse Control: Imparied Insight and Judgment: Poor Memory:Poor Attention: Distractible Orientation: Confused Assessment and Plan (1) Schizophrenia Current Visit: Yes Status: Acute Treatment Plan Patient admitted for inpatient psychiatric evaluation, medication adjustment and close monitoring The patient's behavior, mood, sleep and appetite will be closely monitored. Patient enrolled in individual and group therapeutic sessions and encouraged to attend. Patient provided with a safe and structured environment. Patient's physical health needs will be addressed by the Hospitalist. Hospitalist Consulted Labs including CBC, CMP, Lipid profile and Hemoglobin A1C levels ordered for baseline reference Social Assessment will be completed and the Farm Operations Technical Director will work with patient and family to ensure a suitable and safe disposition Medication adjustment will be made as clinically indicated Continue Zoloft 50mg po daily Start Abilify 5mg po daily yesterday Usual Wellness Presybeterian/Preservation: - Start Trazodone 50 mg po QHS & 50 mg po QHS PRN between 10 PM & 2 AM for insomnia - Start Melatonin 5 mg po QHS to promote circadian rhythm The patient agreed on the treatment plan, understood the risk, benefit, alternative treatment, potential consequence of no treatment, and gave informed consent. Estimated days: 7 Post hospital care: primary care provider, psychiatric provider Case staffed with Dr. Briones Medications and Allergies Allergies Allergy/AdvReac Type Severity Reaction Status Date / Time No Known Allergies Allergy Verified 08/26/21 03:16 Active Meds: Active Medications Amlodipine Besylate (Amlodipine 5 Mg Tab) 5 mg PO QDAY AZEB Last Admin: 09/07/21 10:16 Dose: Not Given Documented by: Aripiprazole (Aripiprazole 5 Mg Tab) 5 mg PO QDAY [facility] Last Admin: 09/07/21 10:15 Dose: 5 mg Documented by: Haloperidol (Haloperidol 5 Mg Tab) 5 mg PO DAILY [facility] Last Admin: 09/07/21 10:15 Dose: 5 mg Documented by: Melatonin (Melatonin 5 Mg Tab) 5 mg PO QHS PRN PRN Reason: Sleep Last Admin: 08/31/21 21:08 Dose: 5 mg Documented by: Sertraline HCl (Sertraline 50 Mg Tab) 50 mg PO QDAY [facility] Last Admin: 09/07/21 10:15 Dose: 50 mg Documented by: Trazodone HCl (Trazodone 50 Mg Tab) 50 mg PO QHS [facility] Last Admin: 09/06/21 21:09 Dose: 50 mg Documented by: Results - Results Labs/Vitals: Laboratory Last Values WBC 4.1 K/mm3 (4.5-11.0) L 08/26/21 13:40 RBC 3.62 M/mm3 (3.65-5.03) L 08/26/21 13:40 Hgb 12.8 gm/dl (10.1-14.3) 08/26/21 13:40 Hct 37.5 % (30.3-42.9) 08/26/21 13:40 MCV 104 fl (79-97) H 08/26/21 13:40 MCH 35 pg (28-32) H 08/26/21 13:40 MCHC 34 % (30-34) 08/26/21 13:40 RDW 13.4 % (13.2-15.2) 08/26/21 13:40 Plt Count 165 K/mm3 (140-440) 08/26/21 13:40 Lymph % (Auto) 31.0 % (13.4-35.0) 08/26/21 13:40 [place] % (Auto) 7.4 % (0.0-7.3) H 08/26/21 13:40 Eos % (Auto) 0.1 % (0.0-4.3) 08/26/21 13:40 Baso % (Auto) 0.3 % (0.0-1.8) 08/26/21 13:40 Lymph # (Auto) 1.3 K/mm3 (1.2-5.4) 08/26/21 13:40 [place] # (Auto) 0.3 K/mm3 (0.0-0.8) 08/26/21 13:40 Eos # (Auto) 0.0 K/mm3 (0.0-0.4) 08/26/21 13:40 Baso # (Auto) 0.0 K/mm3 (0.0-0.1) 08/26/21 13:40 Seg Neutrophils % 61.2 % (40.0-70.0) 08/26/21 13:40 Seg Neutrophils # 2.5 K/mm3 (1.8-7.7) 08/26/21 13:40 Sodium 140 mmol/L (137-145) 08/26/21 13:40 Potassium 4.3 mmol/L (3.6-5.0) 08/26/21 13:40 Chloride 102.8 mmol/L (98-107) 08/26/21 13:40 Carbon Dioxide 26 mmol/L (22-30) 08/26/21 13:40 Anion Gap 16 mmol/L 08/26/21 13:40 BUN 13 mg/dL (7-17) 08/26/21 13:40 Creatinine 0.5 mg/dL (0.6-1.2) L 08/26/21 13:40 Estimated GFR > 60 ml/min 08/26/21 13:40 BUN/Creatinine Ratio 26 % 08/26/21 13:40 Glucose 134 mg/dL (65-100) H 08/26/21 13:40 POC Glucose 130 mg/dL (70-105) H 09/03/21 06:13 Hemoglobin A1c 5.6 % (4-6) 08/26/21 13:40 Calcium 8.8 mg/dL (8.4-10.2) 08/26/21 13:40 Total Bilirubin 0.40 mg/dL (0.1-1.2) 08/26/21 13:40 AST 26 units/L (5-40) 08/26/21 13:40 ALT 17 units/L (7-56) 08/26/21 13:40 Alkaline Phosphatase 133 units/L (35-129) H 08/26/21 13:40 Total Protein 8.6 g/dL (6.3-8.2) H 08/26/21 13:40 Albumin 3.3 g/dL (3.9-5) L 08/26/21 13:40 Albumin/Globulin Ratio 0.6 % 08/26/21 13:40 Triglycerides 174 mg/dL (2-149) H 08/26/21 13:40 Cholesterol 145 mg/dL (50-199) 08/26/21 13:40 LDL Cholesterol Direct 97 mg/dL (50-130) 08/26/21 13:40 HDL Cholesterol 31 mg/dL (40-59) L 08/26/21 13:40 Cholesterol/HDL Ratio 4.67 % 08/26/21 13:40 TSH 3.330 mlU/mL (0.270-4.200) 08/26/21 13:40 Last Vital Signs Temp 98.0 F 09/07/21 09:04 Pulse 67 09/07/21 10:16 Resp 18 09/07/21 09:04 BP 107/62 09/07/21 10:16 Pulse Ox 97 09/07/21 09:04
[2021-09-07] MEDS: traZODone 50 MG TAB PO SCH (21:27)
--- NOTE | 2021-09-08 09:40 | Progress Note ---
Subjective Date of service: 09/08/21 Principal diagnosis: SI Subjective Comment: The patient was seen today. She is lying down in the dayroom off to herself. She is calm and cooperative. The patient waves at me and sits up when I walk up to her. She smiles a little, but overall looks down. REVIEW OF SYSTEMS Constitutional: Negative for weight loss ENT: Negative for stridor Respiratory: Negative for cough or hemoptysis All other systems reviewed and are negative MENTAL STATUS EXAMINATION General Appearance and Behavior: Age appropriate, good hygiene, wearing appropriate clothes. Cooperation: cooperative Psychomotor Behavior: Psychomotor normal Mood: Depressed, sad Affect and affective range: congruent with stated mood Thought Process: circumstantial Thought Content: None Speech: Normal volume, Regular rate and rhythm, Micronesian speaking Suicidal Ideation: yes Homicidal Ideation: Denies Hallucinations: auditory Delusions: None elicited Impulse Control: Imparied Insight and Judgment: Poor Memory:Poor Attention: Distractible Orientation: Confused Assessment and Plan (1) Schizophrenia Current Visit: Yes Status: Acute Treatment Plan Patient admitted for inpatient psychiatric evaluation, medication adjustment and close monitoring The patient's behavior, mood, sleep and appetite will be closely monitored. Patient enrolled in individual and group therapeutic sessions and encouraged to attend. Patient provided with a safe and structured environment. Patient's physical health needs will be addressed by the Hospitalist. Hospitalist Consulted Labs including CBC, CMP, Lipid profile and Hemoglobin A1C levels ordered for baseline reference Social Assessment will be completed and the Bi Lead will work with patient and family to ensure a suitable and safe disposition Medication adjustment will be made as clinically indicated Increased Zoloft 50mg, 1.5 tab po daily Continue Abilify 5mg po daily Usual Wellness Worship/Preservation: - Start Trazodone 50 mg po QHS & 50 mg po QHS PRN between 10 PM & 2 AM for insomnia - Start Melatonin 5 mg po QHS to promote circadian rhythm The patient agreed on the treatment plan, understood the risk, benefit, alternative treatment, potential consequence of no treatment, and gave informed consent. Estimated days: 7 Post hospital care: primary care provider, psychiatric provider Case staffed with Dr. Briones Medications and Allergies Allergies Allergy/AdvReac Type Severity Reaction Status Date / Time No Known Allergies Allergy Verified 08/26/21 03:16 Active Meds: Active Medications Amlodipine Besylate (Amlodipine 5 Mg Tab) 5 mg PO QDAY [facility] Last Admin: 09/07/21 10:16 Dose: Not Given Documented by: Aripiprazole (Aripiprazole 5 Mg Tab) 5 mg PO QDAY [facility] Last Admin: 09/07/21 10:15 Dose: 5 mg Documented by: Haloperidol (Haloperidol 5 Mg Tab) 5 mg PO DAILY [facility] Last Admin: 09/07/21 10:15 Dose: 5 mg Documented by: Melatonin (Melatonin 5 Mg Tab) 5 mg PO QHS PRN PRN Reason: Sleep Last Admin: 08/31/21 21:08 Dose: 5 mg Documented by: Sertraline HCl (Sertraline 50 Mg Tab) 50 mg PO QDAY [facility] Last Admin: 09/07/21 10:15 Dose: 50 mg Documented by: Trazodone HCl (Trazodone 50 Mg Tab) 50 mg PO QHS [facility] Last Admin: 09/07/21 21:27 Dose: 50 mg Documented by: Results - Results Labs/Vitals: Laboratory Last Values WBC 4.1 K/mm3 (4.5-11.0) L 08/26/21 13:40 RBC 3.62 M/mm3 (3.65-5.03) L 08/26/21 13:40 Hgb 12.8 gm/dl (10.1-14.3) 08/26/21 13:40 Hct 37.5 % (30.3-42.9) 08/26/21 13:40 MCV 104 fl (79-97) H 08/26/21 13:40 MCH 35 pg (28-32) H 08/26/21 13:40 MCHC 34 % (30-34) 08/26/21 13:40 RDW 13.4 % (13.2-15.2) 08/26/21 13:40 Plt Count 165 K/mm3 (140-440) 08/26/21 13:40 Lymph % (Auto) 31.0 % (13.4-35.0) 08/26/21 13:40 [place] % (Auto) 7.4 % (0.0-7.3) H 08/26/21 13:40 Eos % (Auto) 0.1 % (0.0-4.3) 08/26/21 13:40 Baso % (Auto) 0.3 % (0.0-1.8) 08/26/21 13:40 Lymph # (Auto) 1.3 K/mm3 (1.2-5.4) 08/26/21 13:40 [place] # (Auto) 0.3 K/mm3 (0.0-0.8) 08/26/21 13:40 Eos # (Auto) 0.0 K/mm3 (0.0-0.4) 08/26/21 13:40 Baso # (Auto) 0.0 K/mm3 (0.0-0.1) 08/26/21 13:40 Seg Neutrophils % 61.2 % (40.0-70.0) 08/26/21 13:40 Seg Neutrophils # 2.5 K/mm3 (1.8-7.7) 08/26/21 13:40 Sodium 140 mmol/L (137-145) 08/26/21 13:40 Potassium 4.3 mmol/L (3.6-5.0) 08/26/21 13:40 Chloride 102.8 mmol/L (98-107) 08/26/21 13:40 Carbon Dioxide 26 mmol/L (22-30) 08/26/21 13:40 Anion Gap 16 mmol/L 08/26/21 13:40 BUN 13 mg/dL (7-17) 08/26/21 13:40 Creatinine 0.5 mg/dL (0.6-1.2) L 08/26/21 13:40 Estimated GFR > 60 ml/min 08/26/21 13:40 BUN/Creatinine Ratio 26 % 08/26/21 13:40 Glucose 134 mg/dL (65-100) H 08/26/21 13:40 POC Glucose 130 mg/dL (70-105) H 09/03/21 06:13 Hemoglobin A1c 5.6 % (4-6) 08/26/21 13:40 Calcium 8.8 mg/dL (8.4-10.2) 08/26/21 13:40 Total Bilirubin 0.40 mg/dL (0.1-1.2) 08/26/21 13:40 AST 26 units/L (5-40) 08/26/21 13:40 ALT 17 units/L (7-56) 08/26/21 13:40 Alkaline Phosphatase 133 units/L (35-129) H 08/26/21 13:40 Total Protein 8.6 g/dL (6.3-8.2) H 08/26/21 13:40 Albumin 3.3 g/dL (3.9-5) L 08/26/21 13:40 Albumin/Globulin Ratio 0.6 % 08/26/21 13:40 Triglycerides 174 mg/dL (2-149) H 08/26/21 13:40 Cholesterol 145 mg/dL (50-199) 08/26/21 13:40 LDL Cholesterol Direct 97 mg/dL (50-130) 08/26/21 13:40 HDL Cholesterol 31 mg/dL (40-59) L 08/26/21 13:40 Cholesterol/HDL Ratio 4.67 % 08/26/21 13:40 TSH 3.330 mlU/mL (0.270-4.200) 08/26/21 13:40 Last Vital Signs Temp 98.2 F 09/08/21 07:53 Pulse 66 09/08/21 07:53 Resp 18 09/08/21 07:53 BP 113/57 09/08/21 07:53 Pulse Ox 95 09/08/21 07:53
[2021-09-08] MEDS ORDERED: SERTRALINE 50 MG TAB PO SCH (09:41)
[2021-09-08] MEDS: SERTRALINE 25 MG TAB PO SCH (10:36)
[2021-09-08] MEDS: HALOPERIDOL 5 MG TAB PO SCH (10:36)
[2021-09-08] MEDS: ARIPiprazole 5 MG TAB PO SCH (10:36)
[2021-09-08] MEDS: amLODIPine 5 MG TAB PO SCH (10:36)
[2021-09-08] MEDS: SERTRALINE 50 MG TAB PO SCH (10:36)
--- NOTE | 2021-09-08 10:42 | Progress Note ---
Assessment and Plan - Patient Problems (1) Hypertension Current Visit: Yes Status: Acute Qualifiers: Hypertension type: primary hypertension Qualified Code(s): I10 - Essential (primary) hypertension Plan to address problem: Monitor blood pressure every shift, continue medical management (2) Diabetes Current Visit: Yes Status: Acute Plan to address problem: Consistent carbohydrate diet, Accu-Chek, hypoglycemia protocol,, insulin protocol as clinically indicated (3) Schizophrenia Current Visit: Yes Status: Acute Plan to address problem: Continue medical management. History Interval history: 70 YO Male with DM, HTN admitted to [facility] for psychiatric stabilization. Consult placed by Dr. Burrell for medical management. Patient seen and evaluated in her room. No reported nursing events. Patient denies pain. Hospitalist Physical - Constitutional Vitals: Temp Pulse Resp BP Pulse Ox 98.2 F 66 18 113/57 95 09/08/21 07:53 09/08/21 10:36 09/08/21 07:53 09/08/21 10:36 09/08/21 07:53 General appearance: Present: no acute distress, other (Thin woman) - EENT Eyes: Present: PERRL, EOM intact ENT: hearing intact - Neck Neck: Present: supple - Respiratory Respiratory effort: normal Respiratory: bilateral: CTA - Cardiovascular Rhythm: regular Heart Sounds: Present: S1 & S2 Peripheral Pulses: within normal limits - Abdominal General gastrointestinal: soft, non-tender, non-distended - Integumentary Integumentary: Present: clear, dry - Psychiatric Psychiatric: cooperative - Neurologic Neurologic: CNII-XII intact Results - Labs CBC & Chem 7: 08/26/21 13:40 08/26/21 13:40 Labs: Laboratory Last Values WBC 4.1 K/mm3 (4.5-11.0) L 08/26/21 13:40 RBC 3.62 M/mm3 (3.65-5.03) L 08/26/21 13:40 Hgb 12.8 gm/dl (10.1-14.3) 08/26/21 13:40 Hct 37.5 % (30.3-42.9) 08/26/21 13:40 MCV 104 fl (79-97) H 08/26/21 13:40 MCH 35 pg (28-32) H 08/26/21 13:40 MCHC 34 % (30-34) 08/26/21 13:40 RDW 13.4 % (13.2-15.2) 08/26/21 13:40 Plt Count 165 K/mm3 (140-440) 08/26/21 13:40 Lymph % (Auto) 31.0 % (13.4-35.0) 08/26/21 13:40 [place] % (Auto) 7.4 % (0.0-7.3) H 08/26/21 13:40 Eos % (Auto) 0.1 % (0.0-4.3) 08/26/21 13:40 Baso % (Auto) 0.3 % (0.0-1.8) 08/26/21 13:40 Lymph # (Auto) 1.3 K/mm3 (1.2-5.4) 08/26/21 13:40 [place] # (Auto) 0.3 K/mm3 (0.0-0.8) 08/26/21 13:40 Eos # (Auto) 0.0 K/mm3 (0.0-0.4) 08/26/21 13:40 Baso # (Auto) 0.0 K/mm3 (0.0-0.1) 08/26/21 13:40 Seg Neutrophils % 61.2 % (40.0-70.0) 08/26/21 13:40 Seg Neutrophils # 2.5 K/mm3 (1.8-7.7) 08/26/21 13:40 Sodium 140 mmol/L (137-145) 08/26/21 13:40 Potassium 4.3 mmol/L (3.6-5.0) 08/26/21 13:40 Chloride 102.8 mmol/L (98-107) 08/26/21 13:40 Carbon Dioxide 26 mmol/L (22-30) 08/26/21 13:40 Anion Gap 16 mmol/L 08/26/21 13:40 BUN 13 mg/dL (7-17) 08/26/21 13:40 Creatinine 0.5 mg/dL (0.6-1.2) L 08/26/21 13:40 Estimated GFR > 60 ml/min 08/26/21 13:40 BUN/Creatinine Ratio 26 % 08/26/21 13:40 Glucose 134 mg/dL (65-100) H 08/26/21 13:40 POC Glucose 130 mg/dL (70-105) H 09/03/21 06:13 Hemoglobin A1c 5.6 % (4-6) 08/26/21 13:40 Calcium 8.8 mg/dL (8.4-10.2) 08/26/21 13:40 Total Bilirubin 0.40 mg/dL (0.1-1.2) 08/26/21 13:40 AST 26 units/L (5-40) 08/26/21 13:40 ALT 17 units/L (7-56) 08/26/21 13:40 Alkaline Phosphatase 133 units/L (35-129) H 08/26/21 13:40 Total Protein 8.6 g/dL (6.3-8.2) H 08/26/21 13:40 Albumin 3.3 g/dL (3.9-5) L 08/26/21 13:40 Albumin/Globulin Ratio 0.6 % 08/26/21 13:40 Triglycerides 174 mg/dL (2-149) H 08/26/21 13:40 Cholesterol 145 mg/dL (50-199) 08/26/21 13:40 LDL Cholesterol Direct 97 mg/dL (50-130) 08/26/21 13:40 HDL Cholesterol 31 mg/dL (40-59) L 08/26/21 13:40 Cholesterol/HDL Ratio 4.67 % 08/26/21 13:40 TSH 3.330 mlU/mL (0.270-4.200) 08/26/21 13:40 [place]/IV: Voiding Method Toilet Active Medications - Current Medications Current Medications: Generic Name Dose Route Start Last Admin Trade Name Freq PRN Reason Stop Dose Admin Amlodipine Besylate 5 mg 08/29/21 10:00 09/08/21 10:36 Amlodipine 5 Mg Tab PO Not Given QDAY AZEB Aripiprazole 5 mg 09/06/21 12:00 09/08/21 10:36 Aripiprazole 5 Mg Tab PO 5 mg QDAY AZEB Administration Haloperidol 5 mg 09/03/21 10:00 09/08/21 10:36 Haloperidol 5 Mg Tab PO 5 mg DAILY AZEB Administration Melatonin 5 mg 08/26/21 03:19 08/31/21 21:08 Melatonin 5 Mg Tab PO 5 mg QHS PRN Administration Sleep Sertraline HCl 25 mg 09/08/21 11:00 09/08/21 10:36 Sertraline 25 Mg Tab PO 25 mg QDAY AZEB Administration Sertraline HCl 50 mg 09/08/21 11:00 09/08/21 10:36 Sertraline 50 Mg Tab PO 50 mg QDAY AZEB Administration Trazodone HCl 50 mg 08/26/21 22:00 09/07/21 21:27 Trazodone 50 Mg Tab PO 50 mg QHS AZEB Administration Nutrition/Malnutrition Assess - Dietary Evaluation Nutrition/Malnutrition Findings: Nutrition Notes Start: 09/03/21 16:29 Freq: Status: Active Protocol: Document 09/03/21 16:29 GB (Rec: 09/03/21 16:37 GB [id number]) Nutrition Notes Need for Assessment generated from: LOS Initial or Follow up Assessment Other Pertinent Diagnosis schizophrenia Current Diet cardiac/consistent carbohydrate Labs/Tests 08/26: creatinine 0.5, glucose 134, AlkP 133, Tg 174 A1c: 5.6 Pertinent Medications reviewed Height 5 ft 3 in Weight 55 kg [place] Body Weight (kg) 52.27 BMI 21.4 Weight change and time frame Upon admit: pt stated yes to losing weight without trying with no amount/time frame indicated. Weight Status Appropriate Subjective/Other Information Assessment r/t STEFFANIE MALONEY note 09/03: pt in activity room, self isolates, calm PO intake of meals: 75% or greater daily Percent of energy/protein needs met: 100% met with current po intake of meals Burn Absent Trauma Absent GI Symptoms None Food Allergy No Skin Integrity/Comment No complications reported Current % PO Good (75-100%) Minimum of two criteria No #1 Nutrition Diagnosis No nutrition diagnosis at this time Etiology schizophrenia As Evidenced by Signs and Symptoms good po, no recorded weight change, no skin complications Is patient on ventilator? No Is Patient Ambulatory and/or Out of Bed Yes REE-([facility]-ambulatory/OOB) [ 1363.869 [id number]] Calculation Used for Recommendations [facility] Additional Notes Protein: 0.8-1 g/kg @ 55k -55kg Fluids: 1 ml/kcal or per MD Nutrition Intervention Change Diet Order: continue Nutrition Support: n/a Add Supplement/Snack (indicate name/kcal PRN /protein ) Goal #1 PO intake of meals to continue at 75% or greater daily for LOS Revisit per MD consult or patient Sign Off request:
[2021-09-08] MEDS: traZODone 50 MG TAB PO SCH (21:17)
[2021-09-09] MEDS: SERTRALINE 25 MG TAB PO SCH (10:44)
[2021-09-09] MEDS: ARIPiprazole 5 MG TAB PO SCH (10:44)
[2021-09-09] MEDS: HALOPERIDOL 5 MG TAB PO SCH (10:44)
[2021-09-09] MEDS: SERTRALINE 50 MG TAB PO SCH (10:44)
[2021-09-09] MEDS: amLODIPine 5 MG TAB PO SCH (10:44)
[2021-09-09 10:45] VITALS: BP 100/61
--- NOTE | 2021-09-09 12:35 | Discharge Summary ---
Providers - Providers Date of Admission: 08/26/21 02:03 Date of discharge: 09/09/21 Attending physician: BABITA LE MD 08/25/21 19:35 Consult to Physician [CONS] Routine Comment: Consulting Provider: GEORGIE BURK Physician Instructions: Reason For Exam: manage medical conditions Primary care physician: SENIOR STRATEGY ANALYST Hospitalization Reason for admission: depression Admitting Diagnosis: F20.9 - SCHIZOPHRENIA, UNSPECIFIED Condition: Stable Hospital course: The patient was provided inpatient psychiatric treatment with safe and supportive care, medication adjustment, adverse effect monitoring, medical evaluations, medical treatments, assessment and psycho-education. The patient's mood, cognition, behavior, moral support are improved and stabilized. St the time of discharge, the patient had no endangering behavior and no debilitating adverse effects. The patient agreed on potential consequences of no treatment and gave informed consent. 09/09 Spoke with the patient's son Vo and explained to him medications, benefits and possible SE. Also discussed with him the patient's progress and her discharge home today. He verbalized understanding and agreement. Disposition: 01 HOME / SELF CARE / HOMELESS Time spent for discharge: 35 Allergies/Adverse Reactions: Allergies No Known Allergies Allergy (Verified 08/26/21 03:16) Vital Signs: Last Vital Signs Temp 97.6 F 09/08/21 19:43 Pulse 63 09/09/21 10:44 Resp 18 09/08/21 19:43 BP 100/61 09/09/21 10:44 Pulse Ox 96 09/08/21 19:43 Last Lab: Laboratory Last Values WBC 4.1 K/mm3 (4.5-11.0) L 08/26/21 13:40 RBC 3.62 M/mm3 (3.65-5.03) L 08/26/21 13:40 Hgb 12.8 gm/dl (10.1-14.3) 08/26/21 13:40 Hct 37.5 % (30.3-42.9) 08/26/21 13:40 MCV 104 fl (79-97) H 08/26/21 13:40 MCH 35 pg (28-32) H 08/26/21 13:40 MCHC 34 % (30-34) 08/26/21 13:40 RDW 13.4 % (13.2-15.2) 08/26/21 13:40 Plt Count 165 K/mm3 (140-440) 08/26/21 13:40 Lymph % (Auto) 31.0 % (13.4-35.0) 08/26/21 13:40 [place] % (Auto) 7.4 % (0.0-7.3) H 08/26/21 13:40 Eos % (Auto) 0.1 % (0.0-4.3) 08/26/21 13:40 Baso % (Auto) 0.3 % (0.0-1.8) 08/26/21 13:40 Lymph # (Auto) 1.3 K/mm3 (1.2-5.4) 08/26/21 13:40 [place] # (Auto) 0.3 K/mm3 (0.0-0.8) 08/26/21 13:40 Eos # (Auto) 0.0 K/mm3 (0.0-0.4) 08/26/21 13:40 Baso # (Auto) 0.0 K/mm3 (0.0-0.1) 08/26/21 13:40 Seg Neutrophils % 61.2 % (40.0-70.0) 08/26/21 13:40 Seg Neutrophils # 2.5 K/mm3 (1.8-7.7) 08/26/21 13:40 Sodium 140 mmol/L (137-145) 08/26/21 13:40 Potassium 4.3 mmol/L (3.6-5.0) 08/26/21 13:40 Chloride 102.8 mmol/L (98-107) 08/26/21 13:40 Carbon Dioxide 26 mmol/L (22-30) 08/26/21 13:40 Anion Gap 16 mmol/L 08/26/21 13:40 BUN 13 mg/dL (7-17) 08/26/21 13:40 Creatinine 0.5 mg/dL (0.6-1.2) L 08/26/21 13:40 Estimated GFR > 60 ml/min 08/26/21 13:40 BUN/Creatinine Ratio 26 % 08/26/21 13:40 Glucose 134 mg/dL (65-100) H 08/26/21 13:40 POC Glucose 130 mg/dL (70-105) H 09/03/21 06:13 Hemoglobin A1c 5.6 % (4-6) 08/26/21 13:40 Calcium 8.8 mg/dL (8.4-10.2) 08/26/21 13:40 Total Bilirubin 0.40 mg/dL (0.1-1.2) 08/26/21 13:40 AST 26 units/L (5-40) 08/26/21 13:40 ALT 17 units/L (7-56) 08/26/21 13:40 Alkaline Phosphatase 133 units/L (35-129) H 08/26/21 13:40 Total Protein 8.6 g/dL (6.3-8.2) H 08/26/21 13:40 Albumin 3.3 g/dL (3.9-5) L 08/26/21 13:40 Albumin/Globulin Ratio 0.6 % 08/26/21 13:40 Triglycerides 174 mg/dL (2-149) H 08/26/21 13:40 Cholesterol 145 mg/dL (50-199) 08/26/21 13:40 LDL Cholesterol Direct 97 mg/dL (50-130) 08/26/21 13:40 HDL Cholesterol 31 mg/dL (40-59) L 08/26/21 13:40 Cholesterol/HDL Ratio 4.67 % 08/26/21 13:40 TSH 3.330 mlU/mL (0.270-4.200) 08/26/21 13:40 Core Measure Documentation - Palliative Care Palliative Care/ Comfort Measures: Not Applicable - Core Measures Any of the following diagnoses?: none Exam - Constitutional Vitals: Temp Pulse Resp BP Pulse Ox 97.6 F 63 18 100/61 96 09/08/21 19:43 09/09/21 10:44 09/08/21 19:43 09/09/21 10:44 09/08/21 19:43 General appearance: Present: no acute distress, mild distress - EENT Eyes: Present: PERRL, EOM intact ENT: hearing intact, clear oral mucosa - Neck Neck: Present: supple, normal ROM - Respiratory Respiratory effort: normal Plan Activity: advance as tolerated Weight Bearing Status: Weight Bear as Tolerated Care Plan Goals: Maintain good and stable mental health Plan of Treatment: The patient should be compliant with medications, not to use drugs, and not to drink alcohol. The patient understands that if suicidal ideas, homicidal ideas or any endangering feeling arise, the patient should seek assistance including, but not limited to crisis hotline, and emergency room. Assessment: Schizophrenia Follow up with: PRIMARY CARE, [Primary Care Provider] - 7 Days Prescriptions: traZODone [Desyrel] 50 mg PO QHS #30 tablet Melatonin [Melatonin 5MG TAB] 5 mg PO QHS PRN #30 tablet PRN Reason: Sleep ARIPiprazole 5 mg PO QDAY #30 tablet haloperidoL [Haldol] 5 mg PO DAILY #30 tablet Sertraline [Zoloft] 50 mg PO QDAY #30 tablet
--- NOTE | 2021-09-09 17:51 | Progress Note ---
Assessment and Plan - Patient Problems (1) Hypertension Current Visit: Yes Status: Acute Qualifiers: Hypertension type: primary hypertension Qualified Code(s): I10 - Essential (primary) hypertension Plan to address problem: Monitor blood pressure every shift, continue medical management (2) Diabetes Current Visit: Yes Status: Acute Plan to address problem: Consistent carbohydrate diet, Accu-Chek, hypoglycemia protocol,, insulin protocol as clinically indicated (3) Schizophrenia Current Visit: Yes Status: Acute Plan to address problem: Continue medical management. History Interval history: 70 YO Male with DM, HTN admitted to [facility] for psychiatric stabilization. Consult placed by Dr. Burrell for medical management. Patient seen and evaluated in her room. No reported nursing events. Patient denies pain. Hospitalist Physical - Constitutional Vitals: Temp Pulse Resp BP Pulse Ox 97.6 F 63 18 100/61 96 09/08/21 19:43 09/09/21 10:44 09/08/21 19:43 09/09/21 10:44 09/08/21 19:43 General appearance: Present: no acute distress, other (Thin woman) - EENT Eyes: Present: PERRL, EOM intact ENT: hearing intact - Neck Neck: Present: supple - Respiratory Respiratory: bilateral: CTA - Cardiovascular Rhythm: regular Heart Sounds: Present: S1 & S2 - Extremities Extremities: no ischemia Peripheral Pulses: within normal limits - Abdominal General gastrointestinal: soft, non-tender, non-distended - Integumentary Integumentary: Present: clear, dry - Psychiatric Psychiatric: cooperative - Neurologic Neurologic: CNII-XII intact Results - Labs CBC & Chem 7: 08/26/21 13:40 08/26/21 13:40 Labs: Laboratory Last Values WBC 4.1 K/mm3 (4.5-11.0) L 08/26/21 13:40 RBC 3.62 M/mm3 (3.65-5.03) L 08/26/21 13:40 Hgb 12.8 gm/dl (10.1-14.3) 08/26/21 13:40 Hct 37.5 % (30.3-42.9) 08/26/21 13:40 MCV 104 fl (79-97) H 08/26/21 13:40 MCH 35 pg (28-32) H 08/26/21 13:40 MCHC 34 % (30-34) 08/26/21 13:40 RDW 13.4 % (13.2-15.2) 08/26/21 13:40 Plt Count 165 K/mm3 (140-440) 08/26/21 13:40 Lymph % (Auto) 31.0 % (13.4-35.0) 08/26/21 13:40 Porter % (Auto) 7.4 % (0.0-7.3) H 08/26/21 13:40 Eos % (Auto) 0.1 % (0.0-4.3) 08/26/21 13:40 Baso % (Auto) 0.3 % (0.0-1.8) 08/26/21 13:40 Lymph # (Auto) 1.3 K/mm3 (1.2-5.4) 08/26/21 13:40 Porter # (Auto) 0.3 K/mm3 (0.0-0.8) 08/26/21 13:40 Eos # (Auto) 0.0 K/mm3 (0.0-0.4) 08/26/21 13:40 Baso # (Auto) 0.0 K/mm3 (0.0-0.1) 08/26/21 13:40 Seg Neutrophils % 61.2 % (40.0-70.0) 08/26/21 13:40 Seg Neutrophils # 2.5 K/mm3 (1.8-7.7) 08/26/21 13:40 Sodium 140 mmol/L (137-145) 08/26/21 13:40 Potassium 4.3 mmol/L (3.6-5.0) 08/26/21 13:40 Chloride 102.8 mmol/L (98-107) 08/26/21 13:40 Carbon Dioxide 26 mmol/L (22-30) 08/26/21 13:40 Anion Gap 16 mmol/L 08/26/21 13:40 BUN 13 mg/dL (7-17) 08/26/21 13:40 Creatinine 0.5 mg/dL (0.6-1.2) L 08/26/21 13:40 Estimated GFR > 60 ml/min 08/26/21 13:40 BUN/Creatinine Ratio 26 % 08/26/21 13:40 Glucose 134 mg/dL (65-100) H 08/26/21 13:40 POC Glucose 130 mg/dL (70-105) H 09/03/21 06:13 Hemoglobin A1c 5.6 % (4-6) 08/26/21 13:40 Calcium 8.8 mg/dL (8.4-10.2) 08/26/21 13:40 Total Bilirubin 0.40 mg/dL (0.1-1.2) 08/26/21 13:40 AST 26 units/L (5-40) 08/26/21 13:40 ALT 17 units/L (7-56) 08/26/21 13:40 Alkaline Phosphatase 133 units/L (35-129) H 08/26/21 13:40 Total Protein 8.6 g/dL (6.3-8.2) H 08/26/21 13:40 Albumin 3.3 g/dL (3.9-5) L 08/26/21 13:40 Albumin/Globulin Ratio 0.6 % 08/26/21 13:40 Triglycerides 174 mg/dL (2-149) H 08/26/21 13:40 Cholesterol 145 mg/dL (50-199) 08/26/21 13:40 LDL Cholesterol Direct 97 mg/dL (50-130) 08/26/21 13:40 HDL Cholesterol 31 mg/dL (40-59) L 08/26/21 13:40 Cholesterol/HDL Ratio 4.67 % 08/26/21 13:40 TSH 3.330 mlU/mL (0.270-4.200) 08/26/21 13:40 Zamora/IV: Voiding Method Toilet Active Medications - Current Medications Current Medications: Generic Name Dose Route Start Last Admin Trade Name Freq PRN Reason Stop Dose Admin Amlodipine Besylate 5 mg 08/29/21 10:00 09/09/21 10:44 Amlodipine 5 Mg Tab PO 5 mg QDAY AZEB Administration Aripiprazole 5 mg 09/06/21 12:00 09/09/21 10:44 Aripiprazole 5 Mg Tab PO 5 mg QDAY AZEB Administration Haloperidol 5 mg 09/03/21 10:00 09/09/21 10:44 Haloperidol 5 Mg Tab PO 5 mg DAILY AZEB Administration Melatonin 5 mg 08/26/21 03:19 08/31/21 21:08 Melatonin 5 Mg Tab PO 5 mg QHS PRN Administration Sleep Sertraline HCl 25 mg 09/08/21 11:00 09/09/21 10:44 Sertraline 25 Mg Tab PO 25 mg QDAY AZEB Administration Sertraline HCl 50 mg 09/08/21 11:00 09/09/21 10:44 Sertraline 50 Mg Tab PO 50 mg QDAY AZEB Administration Trazodone HCl 50 mg 08/26/21 22:00 09/08/21 21:17 Trazodone 50 Mg Tab PO 50 mg QHS AZEB Administration Nutrition/Malnutrition Assess - Dietary Evaluation Nutrition/Malnutrition Findings: Nutrition Notes Start: 09/03/21 16:29 Freq: Status: Active Protocol: Document 09/03/21 16:29 GB (Rec: 09/03/21 16:37 GB [id number]) Nutrition Notes Need for Assessment generated from: STEFFANIE Initial or Follow up Assessment Other Pertinent Diagnosis schizophrenia Current Diet cardiac/consistent carbohydrate Labs/Tests 08/26: creatinine 0.5, glucose 134, AlkP 133, Tg 174 A1c: 5.6 Pertinent Medications reviewed Height 5 ft 3 in Weight 55 kg [place] Body Weight (kg) 52.27 BMI 21.4 Weight change and time frame Upon admit: pt stated yes to losing weight without trying with no amount/time frame indicated. Weight Status Appropriate Subjective/Other Information Assessment r/t STEFFANIE MALONEY note 09/03: pt in activity room, self isolates, calm PO intake of meals: 75% or greater daily Percent of energy/protein needs met: 100% met with current po intake of meals Burn Absent Trauma Absent GI Symptoms None Food Allergy No Skin Integrity/Comment No complications reported Current % PO Good (75-100%) Minimum of two criteria No #1 Nutrition Diagnosis No nutrition diagnosis at this time Etiology schizophrenia As Evidenced by Signs and Symptoms good po, no recorded weight change, no skin complications Is patient on ventilator? No Is Patient Ambulatory and/or Out of Bed Yes REE-([facility]-ambulatory/OOB) [ 1363.869 [id number]] Calculation Used for Recommendations [facility] Additional Notes Protein: 0.8-1 g/kg @ 55k -55kg Fluids: 1 ml/kcal or per MD Nutrition Intervention Change Diet Order: continue Nutrition Support: n/a Add Supplement/Snack (indicate name/kcal PRN /protein ) Goal #1 PO intake of meals to continue at 75% or greater daily for LOS Revisit per MD consult or patient Sign Off request:
== END 2021-09-09 20:30 | disposition home or self-care (01) | DRG 885 ==
LOC: 3A 16:55 → UNDOADMIN 16:55 → 5A 08-26 02:03
PROVIDERS: ADMIT Psychiatry & Neurology Psychiatry; ATTEND Psychiatry & Neurology Psychiatry
DX: F20.9 Schizophrenia, unspecified (principal); I10 Essential (primary) hypertension; E11.9 Type 2 diabetes mellitus without complications; Z20.822 Contact with and (suspected) exposure to COVID-19
CPT/HCPCS: 36415; 80053; 80061; 82962; 83036; 84443; 85025; G0378; J1631